=== PATIENT | female | born 1980 | race Hispanic/Latino ===

== ENCOUNTER 2017-09-04 10:06 | Day surgery (SDC) | payer MEDICAID, OTHER ==
[~2017-09-04 10:06] MED LIST: ANCEF/STERILE WATER 2 GM/20 ML IV NR
[2017-09-04] MEDS ORDERED: NACL 0.9% 1000 ML 1,000 ML IV SCH (11:00)
[2017-09-04] MEDS ORDERED: PEPCID PO NR (11:00)
[2017-09-04] MEDS ORDERED: VERSED IV NR (11:00)
[2017-09-04] MEDS ORDERED: PERCOCET 5/325 PO PRN (11:23)
[2017-09-04] MEDS ORDERED: ZOFRAN IV PRN (11:23)
[2017-09-04] MEDS ORDERED: SUBLIMAZE IV PRN (11:23)
--- NOTE | 2017-09-04 11:23 | Anesthesia Day of Surgery ---
Anesthesia Day of Surgery - Day of Surgery Patient Examined: Yes Patient is NPO: Yes Beta Blockers: No
--- NOTE | 2017-09-04 11:23 | Anesthesia Consultation ---
Anesthesia Consult and Med Hx Date of service: 09/04/17 - Airway Anesthetic Teeth Evaluation: Good, Crowns (top front, molar at top) ROM Head & Neck: Adequate Mental/Hyoid Distance: Adequate Mallampati Class: Class II Intubation Access Assessment: Probably Good - Pulmonary Exam CTA: Yes - Cardiac Exam Cardiac Exam: RRR - Pre-Operative Health Status ASA Pre-Surgery Classification: ASA2 Proposed Anesthetic Plan: General - Pulmonary Hx Smoking: Yes (OCC USES BLACK & MILDS) Hx Asthma: No Hx Sleep Apnea: No (DODIE PRE SCREEN LOW RISK.) - Cardiovascular System Hx Hypertension: No Hx Heart Attack/AMI: No - Central Nervous System Hx Seizures: No CVA: No Hx Psychiatric Problems: Yes - Gastrointestinal Hx Gastroesophageal Reflux Disease: Yes - Endocrine Hx Renal Disease: No Hx Cirrhosis: No Hx Hypothyroidism: No - Other Systems Hx Alcohol Use: Yes (2-3 DRINKS PER DAY) Hx Cancer: No Hx Obesity: Yes (BMI 35)
[2017-09-04] MEDS ORDERED: NACL BACTERIOSTATIC INFILTRATI ONE (11:32)
[2017-09-04] MEDS ORDERED: DIPRIVAN 10 MG/ML IV ONE (12:32)
[2017-09-04] MEDS ORDERED: XYLOCAINE MPF 2% ONE (12:34)
[2017-09-04] MEDS ORDERED: WATER FOR IRRIG STERILE IR ONE (13:00)
--- NOTE | 2017-09-04 13:23 | Short Stay Summary ---
Short Stay Documentation Date of service: 09/04/17 - History H&P: obtained from office - Allergies and Medications Current Medications: Allergies nitrofurantoin [From Macrobid] Allergy (Verified 09/02/17 16:09) CHEST PAIN codeine Adverse Reaction (Intermediate, Verified 09/04/17 11:54) Nausea CAUSES NAUSEA AND VOMITING,HEADACHE ALMOND Adverse Reaction (Uncoded 05/17/16 11:23) Itching Home Medications Medication Instructions Recorded Confirmed Last Taken Type Omeprazole [Omeprazole] 1 tab PO DAILY 06/05/16 09/04/17 09/02/17 History Motrin 800 MG tab 800 mg PO PRN PRN 09/02/17 09/02/17 Unknown History Active Medications Cefazolin Sodium (Ancef/Sterile Water 2 Gm/20 Ml) 2 gm IV PREOP NR Stop: 09/04/17 23:59 Famotidine (Pepcid) 20 mg PO PREOP NR Stop: 09/04/17 23:59 Last Admin: 09/04/17 11:30 Dose: 20 mg Fentanyl (Sublimaze) 50 mcg IV Q5MIN PRN PRN Reason: Pain , Severe (7-10) Sodium Chloride (Nacl 0.9% 1000 Ml) 1,000 mls @ 75 mls/hr IV DIRECT WNADA Last Admin: 09/04/17 11:40 Dose: 75 mls/hr Midazolam HCl (Versed) 2 mg IV PREOP NR Stop: 09/04/17 23:59 Last Admin: 09/04/17 11:45 Dose: 2 mg Ondansetron HCl (Zofran) 4 mg IV ONCE PRN PRN Reason: Nausea And Vomiting Oxycodone/Acetaminophen (Percocet 5/325) 1 tab PO ONCE PRN PRN Reason: Pain, Moderate (4-6) - Brief post op/procedure progress note Date of procedure: 09/04/17 Pre-op diagnosis: left flank pain Post-op diagnosis: same Procedure: cysto,rpg, left ureteroscopy, stent with external string Anesthesia: MARYA Surgeon: MYESHA FRIED Estimated blood loss: none Pathology: none Condition: stable - Hospital course Hospital course: macrobid, ultram, dilaudid on chart - Disposition Condition at discharge: Stable Disposition: DC-01 TO HOME OR SELFCARE Short Stay Discharge Plan Follow up with: SANJEEV PRADO NP [Primary Care Provider] - 7 Days
[2017-09-04] MEDS ORDERED: ZOFRAN ONE (13:26)
[2017-09-04] MEDS ORDERED: DILAUDID ONE (13:26)
--- NOTE | 2017-09-04 13:47 | Operative Report ---
PREOPERATIVE DIAGNOSIS: Left flank pain, history of stones. POSTOPERATIVE DIAGNOSES: Left flank pain, history of stones. PROCEDURE: Cystoscopy, bilateral retrograde pyelograms, left ureteroscopy, double-J stent (6-Hungarian 24 cm with an external string). SURGEON: Jamari Baxter MD ANESTHESIA: General. ESTIMATED BLOOD LOSS: Minimal. FLUIDS: Crystalloid. COMPLICATIONS: No complications. INDICATIONS: This patient is a 37-year-old female known to our office, presented recently with left flank pain, persisted over several weeks, question of UTI in the past. She presents now for surgical intervention. The patient states she has gone to the Emergency Room several times. CT of abdomen and pelvis done at [facility], unremarkable. Also, of note, she had seen orthopedist, it is unclear if it is for back pain, knee pain or joint pain. DESCRIPTION OF PROCEDURE: The patient was taken to the operative suite, placed in a supine position. After adequate general anesthesia, placed in a dorsal lithotomy position, prepped and draped in a sterile fashion. Pancystourethroscopy was performed with 22-Hungarian Storz cystoscope. No bladder pathology. No tumors or stones. Both ureteral orifices in normal position. Bilateral retrograde pyelograms were obtained with an 8-Hungarian [place] catheter and 8 mL of contrast. No filling defects or obstruction bilaterally; however, due to her persistent pain on the left elected to do ureteroscopy. Two 0.035 Glidewires were placed. Ureteroscopy all the way to the renal pelvis was performed. No obvious stone could be appreciated. A 6-Hungarian 24 cm double-J stent with an external string was indwelling. It is possible she may have passed the stone recently. If her pain persist she may require evaluation with her with orthopedics. JOB# [id number] C/NTS
--- NOTE | 2017-09-04 13:49 | Post Anesthesia Evaluation ---
- Post Anesthesia Evaluation Patient Participated: Yes Airway Patent: Yes Stable Respiratory Function: Yes Nausea/Vomiting: No Temp > 96.8F: Yes Pain Manageable: Yes Adequeate Hydration: Yes Anesthesia Complications: No Block Receding Appropriately: Not Applicable Patient on Ventilator: No
[2017-09-04] MEDS: DILAUDID IV PRN ×2 (13:53→14:03)
[2017-09-04] MEDS ORDERED: ULTRAM PO ONE (15:00)
[2017-09-04] MEDS ORDERED: TORADOL IV ONE (15:00)
[2017-09-04 15:10] VITALS: BP 106/58
--- NOTE | 2017-09-05 08:44 | Fluoroscopy Report ---
FLUOROSCOPY RETROGRADE UROGRAPHY History: Left ureteral stone. Findings: Fluoroscopy was provided by radiology during retrograde urography by the urologist. 8 fluoroscopic images were captured. Retrograde pyelograms demonstrate no evidence for ureteral filling defect or abnormal dilatation. Left ureteroscopy was performed per the operative notes. A left ureteral stent was placed which is in good position on the final image. Please correlate with the procedural report as needed. Impression: Left ureteral stent placement.
== END 2017-09-04 15:33 | disposition home or self-care (01) ==
LOC: OR 10:06
PROVIDERS: ATTEND Urology
DX: R10.12 Left upper quadrant pain (principal); K21.9 Gastro-esophageal reflux disease without esophagitis; E66.9 Obesity, unspecified; F17.200 Nicotine dependence, unspecified, uncomplicated; Z68.35 Body mass index [BMI] 35.0-35.9, adult; Z88.5 Allergy status to narcotic agent; Z91.018 Allergy to other foods
CPT/HCPCS: 52351; 74420; 81025; A4217; C1758; C1769; C2617; J0690; J1170; J1885; J2250; J2405; J2704; J7030; Q9967

== ENCOUNTER 2018-04-14 13:47 | Outpatient (CLI) | payer OTHER ==
--- NOTE | 2018-04-14 16:13 | Ultrasound Report ---
RIGHT BREAST ULTRASOUND: 04/14/18 13:47:00 CLINICAL: Right breast pain, enlargement and edema. She has had several courses of antibiotics. COMPARISON: 03/13/18 MRI FINDINGS: Ultrasound of the right breast(including all four quadrants and the retroareolar area) was performed and demonstrated moderate duct ectasia with relatively echogenic material within multiple ducts. These prominent ducts are identified at 6 o'clock 4 cm from the nipple, 6 o'clock 7 cm from the nipple, 7 o'clock 7 cm from the nipple, 8 o'clock 7 cm from the nipple and 9:30 o'clock 7 cm from the nipple. An irregular hypoechoic mass is identified at 7 o'clock 7 cm from the nipple. It measures 6 x 3 x 6 mm. Color Doppler demonstrates moderate increased blood flow in periductal tissue. This is most prominent at 6 o'clock. IMPRESSION: 1. Moderate duct ectasia with possible intraductal masses in the upper outer quadrant, lower outer quadrant and at 6 o'clock. 2. A solid 6 mm mass at 7 o'clock 7cm from the nipple. 3. Recommend ultrasound-guided needle biopsy at 2 sites (ducts at 9:30 o'clock 7 cm from the nipple and the mass at 7 o'clock 7 cm from the nipple). BI-RADS 4--Suspicious
== END 2018-04-14 13:48 | disposition home or self-care (01) ==
LOC: SPVWC 13:47
PROVIDERS: ATTEND Surgery
DX: N60.41 Mammary duct ectasia of right breast (principal); K21.9 Gastro-esophageal reflux disease without esophagitis; E66.9 Obesity, unspecified; Z87.891 Personal history of nicotine dependence; Z90.49 Acquired absence of other specified parts of digestive tract

== ENCOUNTER 2018-04-21 12:48 | Outpatient (CLI) | payer OTHER ==
--- NOTE | 2018-04-21 15:02 | Mammography Report ---
RIGHT DIGITAL DIAGNOSTIC MAMMOGRAM: 04/21/18 12:48:00 CLINICAL: For clip placement immediately status post ultrasound guided vacuum assisted biopsy at 6 o'clock and status post ultrasound guided needle core biopsy at 7 o'clock. COMPARISON:03/13/18 MRI FINDINGS: Biopsy clips are identified at 6 o'clock approximately 5.5 and 6.5 cm from the nipple. The vacuum assisted biopsy is slightly more anterior and superior. IMPRESSION: Concordant clip placement status post ultrasound guided biopsy at 2 sites. BI-RADS CATEGORY: 4--Suspicious Pathology pending.
--- NOTE | 2018-04-21 16:34 | Ultrasound Report ---
VACUUM ASSISTED ULTRASOUND BIOPSY WITH CLIP PLACEMENT RIGHT BREAST AND ULTRASOUND GUIDED NEEDLE CORE BIOPSY OF A SECOND SITE RIGHT BREAST: 04/21/18 12:48:00 CLINICAL: Right breast mass and suspicious intraductal lesions. COMPARISON :04/14/18 breast ultrasound. FINDINGS: The procedure was explained to the patient and informed consent was obtained. Ultrasound demonstrated the previously described solid mass at 7 o'clock 7 cm from the nipple. After additional scanning, decided to sample abnormal ducts at 6 o'clock rather than a 9:30 o'clock. The skin was prepped with Betadine and anesthetized with 1% lidocaine. Ultrasound guided needle core biopsy of the mass at 7 o'clock was performed through a small dermatotomy using 2% lidocaine with epinephrine for deep anesthesia and a 14-gauge Achieve biopsy device. 3 samples were obtained and placed in formalin. A localizer clip was deployed within the mass. The skin was prepped with Betadine and anesthetized with 1% lidocaine at 6 o'clock. Vacuum-assisted needle core biopsy was performed through a small dermatotomy using ultrasound guidance, 2% lidocaine with epinephrine for deep anesthesia and a 10 gauge Mammotome Elite biopsy probe. Multiple samples of abnormal ducts were obtained and placed in formalin. A localizer clip was deployed at the site. Hemostasis was obtained at both sites with minimal pressure and sterile dressings were applied. The patient tolerated the procedure well and there were no apparent complications. A post procedure mammogram demonstrated 2 biopsy clips at 6 o'clock approximately 1 cm apart. She was discharged in good condition and was given instructions for wound care and followup. IMPRESSION: Uncomplicated vacuum-assisted ultrasound core biopsy of a right breast mass at 7 o'clock and uncomplicated needle core biopsy of suspicious abnormal ducts at 6 o'clock. URIEL
== END 2018-04-21 12:49 | disposition home or self-care (01) ==
LOC: SPVWC 12:48
PROVIDERS: ATTEND Surgery
DX: N63.10 Unspecified lump in the right breast, unspecified quadrant (principal); K21.9 Gastro-esophageal reflux disease without esophagitis; F41.9 Anxiety disorder, unspecified; F17.200 Nicotine dependence, unspecified, uncomplicated; E66.9 Obesity, unspecified; Z68.35 Body mass index [BMI] 35.0-35.9, adult; Z79.899 Other long term (current) drug therapy; Z88.5 Allergy status to narcotic agent; Z88.8 Allergy status to other drugs, medicaments and biological substances; Z91.018 Allergy to other foods; Z72.89 Other problems related to lifestyle; Z98.890 Other specified postprocedural states
CPT/HCPCS: 19083; 19084; 77065; 88305; 88341; 88342; A4648

== ENCOUNTER 2018-07-29 12:07 | Observation (INO) | payer OTHER ==
[2018-07-28 11:23] LABS: BUN/Creatinine Ratio 13; Blood Urea Nitrogen 9 mg/dL (7-17); Calcium 8.9 mg/dL (8.4-10.2); Hemolysis Index 8
[2018-07-28 11:57] LABS: Basophils % (Auto) 0.7 % (0.0-1.8); Eosinophils # (Auto) 0.1 K/mm3 (0.0-0.4); Eosinophils % (Auto) 1.8 % (0.0-4.3); Hematocrit 38.7 % (30.3-42.9); Hemoglobin 12.9 gm/dl (10.1-14.3); Lymphocytes # (Auto) 1.5 K/mm3 (1.2-5.4); Mean Corpuscular HGB Conc 33 % (30-34); Mean Corpuscular Volume 94 fl (79-97); Monocytes # (Auto) 0.5 K/mm3 (0.0-0.8); Monocytes % (Auto) 7.8 % (0.0-7.3); Platelet Count 284 K/mm3 (140-440); Red Blood Count 4.14 M/mm3 (3.65-5.03); Red Cell Distribution Width 13.8 % (13.2-15.2)
[2018-07-29] MEDS ORDERED: SUBLIMAZE ONE ×3 (12:20→16:00)
[2018-07-29] MEDS ORDERED: XYLOCAINE MPF 2% ONE (12:20)
[2018-07-29] MEDS ORDERED: ZEMURON IV ONE (12:20)
[2018-07-29] MEDS ORDERED: BLOXIVERZ ONE (12:20)
[2018-07-29] MEDS ORDERED: ROBINUL ONE (12:20)
[2018-07-29] MEDS ORDERED: DIPRIVAN 10 MG/ML IV ONE (12:21)
[2018-07-29] MEDS ORDERED: LACTATED RINGERS 1,000 ML IV SCH ×2 (12:22→19:00)
[2018-07-29] MEDS ORDERED: VERSED IV PRN (13:12)
[2018-07-29] MEDS ORDERED: ZOFRAN IV NR (13:13)
[2018-07-29] MEDS ORDERED: TRANSDERM-SCOP TD NR (13:13)
[2018-07-29] MEDS ORDERED: DILAUDID ONE ×3 (13:38→18:53)
[2018-07-29] MEDS ORDERED: PEPCID IV NR (14:09)
[2018-07-29] MEDS ORDERED: ANCEF ONE (15:55)
[2018-07-29] MEDS ORDERED: WATER FOR IRRIG STERILE IR ONE (16:01)
[2018-07-29] MEDS ORDERED: SODIUM CHLORIDE FLUSH SYRINGE 10 ML IV PRN (18:07)
[2018-07-29] MEDS ORDERED: BENADRYL PO PRN (18:07)
[2018-07-29] MEDS ORDERED: ZOFRAN IV PRN ×2 (18:07→18:09)
[2018-07-29] MEDS ORDERED: PERCOCET 5/325 PO PRN ×2 (18:07→23:59)
[2018-07-29] MEDS ORDERED: REGLAN PO PRN (18:07)
[2018-07-29] MEDS ORDERED: TYLENOL PO PRN (18:07)
[2018-07-29] MEDS ORDERED: DILAUDID IV PRN (18:09)
--- NOTE | 2018-07-29 18:09 | Anesthesia Day of Surgery ---
Anesthesia Day of Surgery - Day of Surgery Patient Examined: Yes Patient H&P Reviewed: Yes Patient is NPO: Yes
--- NOTE | 2018-07-29 18:09 | Anesthesia Consultation ---
Anesthesia Consult and Med Hx Date of service: 07/29/18 - Airway Anesthetic Teeth Evaluation: Poor ROM Head & Neck: Adequate Mental/Hyoid Distance: Adequate Mallampati Class: Class III Intubation Access Assessment: Possibly Difficult - Pulmonary Exam CTA: Yes - Cardiac Exam Cardiac Exam: RRR - Pre-Operative Health Status ASA Pre-Surgery Classification: ASA3 Proposed Anesthetic Plan: General - Pulmonary Hx Smoking: Yes (OCC USES BLACK & MILDS) Hx Asthma: No Hx Sleep Apnea: No (DODIE PRE SCREEN NEGATIVE.) - Cardiovascular System Hx Hypertension: No Hx Heart Attack/AMI: No - Central Nervous System Hx Seizures: No CVA: No Hx Psychiatric Problems: Yes - Gastrointestinal Hx Gastroesophageal Reflux Disease: Yes - Endocrine Hx Renal Disease: No Hx Cirrhosis: No Hx Hypothyroidism: No - Other Systems Hx Alcohol Use: Yes (2-3 DRINKS PER DAY) Hx Obesity: Yes (BMI 35)
--- NOTE | 2018-07-29 18:20 | Operative Report ---
Operative Report Operative Report: Date of Service: July 29, 2018 Preoperative diagnosis: Right breast cancer sarcoma Postoperative diagnosis: Same Procedure: Right total mastectomy Surgeon: Eleanor Pfeiffer M.D. Anesthesia: Gen. Findings: Known right breast sarcoma and highly vascular, fibrotic tissue noted on pectoralis muscle Complications: None Drains: per plastic surgery Estimated blood loss: 200 cc Disposition: OR Indications for operative procedure: This is a 38-year-old lady with newly diagnosed right breast sarcoma. Recommendations were to proceed with right total mastectomy. Plastic surgery available for closure if skin was not able to be closed. She wished to proceed with the above procedure and understood the possibility of skin flap if skin was not able to be approximated. Procedure in detail: Anesthesia placed right pectoral muscle block prior to going to the operating room. The patient was taken to the operating room and was placed supine. Gen. anesthesia was administered. Right chest and axilla was prepped and draped in the normal sterile operative fashion. Timeout was performed. Typical mastectomy incision marking was made to include wide area of skin. Attention was taken towards the right breast. First began raising of the superior flap to the level of the clavicle superiorly and posteriorly to the pectoralis muscle. Followed by raising of the medial flap to the level of the sternum and posteriorly to the pectoralis muscle. Followed by raising of the lateral flap to the level of the latissimus dorsi muscle and taken down posteriorly. Followed by with raising of the inferior flap to the level of the inframammary fold taken posterior to the pectoralis muscle. The mastectomy/breast was removed from the pectoralis muscle without incident. Tumor was not encountered and large area of skin was resected with tumor. Breast was highly vascular and some fibrotic tissue was noted adherent to pectoralis muscle that was resected. The specimen was appropriately marked and sent to pathology. Hemostasis was obtained. The chest wall was irrigated and suctioned. Plastic surgery then proceeded with skin closure with skin advancement and primary closure. She tolerated surgery very well.
--- NOTE | 2018-07-29 18:21 | Short Stay Summary ---
Short Stay Documentation Date of service: 07/29/18 - History H&P: obtained from office - Allergies and Medications Current Medications: Allergies nitrofurantoin [From Macrobid] Allergy (Verified 05/29/18 15:16) CHEST PAIN codeine Adverse Reaction (Intermediate, Verified 05/29/18 15:16) Nausea CAUSES NAUSEA AND VOMITING,HEADACHE ALMOND Adverse Reaction (Uncoded 05/17/16 11:23) Itching CONTRAST DYE Adverse Reaction (Uncoded 07/29/18 13:25) Hives Home Medications Medication Instructions Recorded Confirmed Last Taken Type Omeprazole 1 tab PO DAILY 06/05/16 07/29/18 07/29/18 07:00 History Ibuprofen 800 mg PO Q8HR PRN #30 tablet 06/01/18 07/29/18 2 Weeks Ago Rx ~07/15/18 Ondansetron (Nf) [Zofran TAB] 8 mg PO Q8HR PRN #10 tablet 07/29/18 Unknown Rx oxyCODONE /ACETAMINOPHEN [Percocet 1 tab PO Q4HR PRN #30 tab 07/29/18 Unknown Rx 5/325] Active Medications Acetaminophen (Tylenol) 650 mg PO Q6H PRN PRN Reason: Pain MILD(1-3)/Fever >100.5/BROWNING Cefazolin Sodium (Ancef/Sterile Water 2 Gm/20 Ml) 2 gm IV PREOP NR Stop: 07/29/18 23:00 Diphenhydramine HCl (Benadryl) 25 mg PO Q8H PRN PRN Reason: Itching Docusate Sodium (Colace) 100 mg PO BID WANDA Famotidine (Pepcid) 20 mg IV PREOP NR Stop: 07/29/18 23:59 Last Admin: 07/29/18 13:45 Dose: 20 mg Documented by: Hydromorphone HCl (Dilaudid) 0.5 mg IV Q10MIN PRN PRN Reason: Pain , Severe (7-10) Lactated Ringer's (Lactated Ringers) 1,000 mls @ 100 mls/hr IV DIRECT WANDA Last Admin: 07/29/18 13:00 Dose: 100 mls/hr Documented by: Lactated Ringer's (Lactated Ringers) 1,000 mls @ 125 mls/hr IV DIRECT WANDA Metoclopramide HCl (Reglan) 10 mg PO Q6H PRN PRN Reason: Nausea And Vomiting Midazolam HCl (Versed) 2 mg IV PREOP PRN PRN Reason: Anxiety Last Admin: 07/29/18 13:40 Dose: 2 mg Documented by: Morphine Sulfate (Morphine) 2 mg IV Q4H PRN PRN Reason: Pain, Moderate (4-6) Ondansetron HCl (Zofran) 4 mg IV PREOP NR Stop: 07/30/18 13:12 Last Admin: 07/29/18 13:30 Dose: 4 mg Documented by: Ondansetron HCl (Zofran) 4 mg IV Q8H PRN PRN Reason: N/V unrelieved by Reglan Ondansetron HCl (Zofran) 4 mg IV ONCE PRN PRN Reason: Nausea And Vomiting Oxycodone/Acetaminophen (Percocet 5/325) 1 tab PO Q6H PRN PRN Reason: Pain, Moderate (4-6) Scopolamine (Transderm-Scop) 1 each TD PREOP NR Stop: 07/29/18 23:59 Last Admin: 07/29/18 13:30 Dose: 1 each Documented by: Sodium Chloride (Sodium Chloride Flush Syringe 10 Ml) 10 ml IV PRN PRN PRN Reason: LINE FLUSH - Brief post op/procedure progress note Date of procedure: 07/29/18 Pre-op diagnosis: Right breast sarcoma Post-op diagnosis: same Procedure: Right total mastectomy Anesthesia: GETA Findings: Right breast sarcoma Surgeon: TREVOR PETERSON Estimated blood loss: other (200 ml) Pathology: list (mastectomy) Specimen disposition: to lab Condition: stable - Disposition Condition at discharge: Good Disposition: DC/TX-02 SHRT-TRM GEN HOSP IP Short Stay Discharge Plan Activity: other (no heavy lifting) Diet: regular Wound: keep clean and dry Follow up with: HAYLEE CABAN MD [Primary Care Provider] - 7 Days TREVOR PETERSON MD [Staff Physician] - 7 Days Prescriptions: Ondansetron (Nf) [Zofran TAB] 8 mg PO Q8HR PRN #10 tablet PRN Reason: Nausea oxyCODONE /ACETAMINOPHEN [Percocet 5/325] 1 tab PO Q4HR PRN #30 tab PRN Reason: Pain , Severe (7-10)
[2018-07-29] MEDS: MORPHINE IV PRN ×2 (19:05→22:40)
[2018-07-29] MEDS ORDERED: MORPHINE ONE (19:05)
[2018-07-29] MEDS ORDERED: VERSED IV ONE (19:21)
[2018-07-29] MEDS ORDERED: VERSED ONE (19:24)
[2018-07-30] MEDS: COLACE PO SCH ×2 (00:08→09:30)
[2018-07-30] MEDS: MORPHINE IV PRN (05:41)
--- NOTE | 2018-07-30 08:09 | Progress Note ---
Assessment and Plan This is a 38 year old lady POD# 1 right mastectomy for angiosarcoma. 1. Pain in good control. 2. Right mastectomy with PICCO in place and ELVIN drains to bulb suction. 3. OOB to hallway. 4. D/C planning for today. Subjective Date of service: 07/30/18 Principal diagnosis: Right breast sarcoma Interval history: POD#1 Right mastectomy for angiosarcoma Objective - Constitutional Vitals: Vital Signs - 12hr 07/29/18 07/29/18 07/29/18 20:30 22:40 23:10 Temperature 97.6 F Pulse Rate 60 Respiratory 15 20 18 Rate Blood Pressure 116/60 Blood Pressure [Left] O2 Sat by Pulse 100 Oximetry 07/30/18 07/30/18 07/30/18 00:00 00:10 01:10 Temperature 98.6 F Pulse Rate 74 Respiratory 16 18 20 Rate Blood Pressure Blood Pressure 101/78 [Left] O2 Sat by Pulse Oximetry 07/30/18 07/30/18 07/30/18 04:20 05:41 06:11 Temperature 98.6 F Pulse Rate 62 Respiratory 18 18 18 Rate Blood Pressure Blood Pressure 118/67 [Left] O2 Sat by Pulse Oximetry General appearance: Present: no acute distress - EENT Eyes: PERRL, EOM intact ENT: hearing intact, clear oral mucosa, dentition normal Ears: bilateral: normal - Neck Neck: supple, normal ROM - Respiratory Respiratory effort: normal Respiratory: bilateral: CTA - Breasts Breasts: other (right PICCO dressing in place to suction; ELVIN drain to bulb suction) - Cardiovascular Rhythm: regular Extremities: no ischemia, pulses intact, pulses symmetrical, No edema, normal temperature, normal color, Full ROM - Gastrointestinal General gastrointestinal: Present: soft, non-tender, non-distended Rectal Exam: deferred - Genitourinary Female genitourinary: deferred - Integumentary Integumentary: clear, warm, dry - Musculoskeletal Musculoskeletal: strength equal bilaterally - Neurologic Neurologic: CNII-XII intact, moves all extremities - Psychiatric Psychiatric: appropriate mood/affect, intact judgment & insight, memory intact, cooperative - Labs CBC & Chem 7: 07/28/18 10:30 07/28/18 10:30 Medications & Allergies - Medications Allergies/Adverse Reactions: Allergies nitrofurantoin [From Macrobid] Allergy (Verified 05/29/18 15:16) CHEST PAIN codeine Adverse Reaction (Intermediate, Verified 05/29/18 15:16) Nausea CAUSES NAUSEA AND VOMITING,HEADACHE ALMOND Adverse Reaction (Uncoded 05/17/16 11:23) Itching CONTRAST DYE Adverse Reaction (Uncoded 07/29/18 13:25) Hives Home Medications: Home Medications Medication Instructions Recorded Confirmed Last Taken Type Omeprazole 1 tab PO DAILY 06/05/16 07/29/18 07/29/18 07:00 History Ibuprofen 800 mg PO Q8HR PRN #30 tablet 06/01/18 07/29/18 2 Weeks Ago Rx ~07/15/18 Ondansetron (Nf) [Zofran TAB] 8 mg PO Q8HR PRN #10 tablet 07/29/18 Unknown Rx oxyCODONE /ACETAMINOPHEN [Percocet 1 tab PO Q4HR PRN #30 tab 07/29/18 Unknown Rx 5/325] Active Medications: Generic Name Dose Route Start Last Admin Trade Name Freq PRN Reason Stop Dose Admin Acetaminophen 650 mg 07/29/18 18:07 Tylenol PO Q6H PRN Pain MILD(1-3)/Fever >100.5/BROWNING Diphenhydramine HCl 25 mg 07/29/18 18:07 Benadryl PO Q8H PRN Itching Docusate Sodium 100 mg 07/29/18 22:00 07/30/18 00:08 Colace PO Not Given BID WANDA Hydromorphone HCl 0.5 mg 07/29/18 18:09 Dilaudid IV Q10MIN PRN Pain , Severe (7-10) Lactated Ringer's 1,000 mls @ 100 mls/hr 07/29/18 12:22 07/29/18 13:00 Lactated Ringers IV 100 mls/hr DIRECT WANDA Administration Lactated Ringer's 1,000 mls @ 125 mls/hr 07/29/18 19:00 Lactated Ringers IV DIRECT WANDA Metoclopramide HCl 10 mg 07/29/18 18:07 Reglan PO Q6H PRN Nausea And Vomiting Midazolam HCl 2 mg 07/29/18 13:12 07/29/18 13:40 Versed IV 2 mg PREOP PRN Administration Anxiety Morphine Sulfate 2 mg 07/29/18 18:09 07/30/18 05:41 Morphine IV 2 mg Q4H PRN Administration Pain, Moderate (4-6) Ondansetron HCl 4 mg 07/29/18 13:13 07/29/18 13:30 Zofran IV 07/30/18 13:12 4 mg PREOP NR Administration Ondansetron HCl 4 mg 07/29/18 18:07 07/30/18 02:05 Zofran IV 4 mg Q8H PRN Administration N/V unrelieved by Nelly Ondansetron HCl 4 mg 07/29/18 18:09 Zofran IV ONCE PRN Nausea And Vomiting Oxycodone/Acetaminophen 2 tab 07/29/18 23:59 07/30/18 00:10 Percocet 5/325 PO 2 tab Q4H PRN Administration Pain, Moderate (4-6) Sodium Chloride 10 ml 07/29/18 18:07 Sodium Chloride Flush Syringe 10 Ml IV PRN PRN LINE FLUSH
[2018-07-30] MEDS ORDERED: TORADOL PO PRN (09:00)
[2018-07-30 12:22] VITALS: BP 107/41
== END 2018-07-30 13:30 | disposition home or self-care (01) ==
LOC: OR 12:07 → OB 18:07
PROVIDERS: ADMIT Surgery; ATTEND Surgery
DX: C50.811 Malignant neoplasm of overlapping sites of right female breast (principal); C50.011 Malignant neoplasm of nipple and areola, right female breast
CPT/HCPCS: 19303; 36415; 64450; 80048; 84703; 85025; 88309; 96374; 96375; 96376; G0378; J0690; J1170; J2250; J2270; J2405; J2704; J2710; J3010; J7120

== ENCOUNTER 2018-08-05 11:01 | Observation (INO) | payer OTHER ==
[2018-08-05] MEDS ORDERED: TRANSDERM-SCOP TD ONE (11:46)
[2018-08-05] MEDS ORDERED: PEPCID IV ONE (11:46)
[2018-08-05] MEDS ORDERED: NEURONTIN ONE (11:47)
[2018-08-05] MEDS ORDERED: LACTATED RINGERS 1,000 ML IV SCH ×2 (12:00→18:00)
[2018-08-05] MEDS ORDERED: VERSED ONE ×2 (13:02→17:43)
[2018-08-05] MEDS ORDERED: DIPRIVAN 10 MG/ML IV ONE (13:02)
[2018-08-05] MEDS ORDERED: SUBLIMAZE ONE ×4 (13:02→15:24)
[2018-08-05] MEDS ORDERED: XYLOCAINE MPF 2% ONE (13:03)
--- NOTE | 2018-08-05 13:47 | Short Stay Summary ---
Short Stay Documentation Date of service: 08/05/18 - History H&P: obtained from office - Allergies and Medications Current Medications: Allergies nitrofurantoin [From Macrobid] Allergy (Verified 05/29/18 15:16) CHEST PAIN codeine Adverse Reaction (Intermediate, Verified 05/29/18 15:16) Nausea CAUSES NAUSEA AND VOMITING,HEADACHE ALMOND Adverse Reaction (Uncoded 05/17/16 11:23) Itching CONTRAST DYE Adverse Reaction (Uncoded 07/29/18 13:25) Hives Home Medications Medication Instructions Recorded Confirmed Last Taken Type Omeprazole 1 tab PO DAILY 06/05/16 08/05/18 08/05/18 07:00 History Ondansetron (Nf) [Zofran TAB] 8 mg PO Q8HR PRN #10 tablet 07/29/18 08/04/18 Unknown Rx oxyCODONE /ACETAMINOPHEN [Percocet 1 tab PO Q4HR PRN #30 tab 07/29/18 08/05/18 08/04/18 Rx 5/325] Active Medications Cefazolin Sodium (Ancef/Sterile Water 2 Gm/20 Ml) 2 gm IV PREOP NR Stop: 08/05/18 16:00 Lactated Ringer's (Lactated Ringers) 1,000 mls @ 100 mls/hr IV DIRECT WANDA Last Admin: 08/05/18 11:50 Dose: 100 mls/hr Documented by: - Brief post op/procedure progress note Date of procedure: 08/05/18 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 Post-op diagnosis: same Procedure: Right mastectomy skin margin revision Anesthesia: GETA Findings: Revision of right mastectomy skin margins of 3 cm Surgeon: TREVOR PETERSON Estimated blood loss: minimal Pathology: list (skin revision) Specimen disposition: to lab Condition: stable - Disposition Condition at discharge: Good Disposition: DC-01 TO HOME OR SELFCARE Short Stay Discharge Plan Activity: other (no heavy lifting; wear right arm sling) Diet: regular Wound: keep clean and dry (wear breast binder; wear right arm sling) Follow up with: HAYLEE CABAN MD [Primary Care Provider] - 7 Days TREVOR PETERSON MD [Staff Physician] - 7 Days Prescriptions: cephALEXin [Keflex] 500 mg PO Q12HR #14 cap
--- NOTE | 2018-08-05 13:49 | Operative Report ---
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 She recently underwent right mastecomy with final pathology of angiosarcoma of 12 cm and benign all surgical margins and closest margin of 2 mm. Recommendations was to proceed with mastectomy skin margin revision with margins of at least 2 cm but attempt of 3 cm. Patient wished to proceed with the above procedure. Procedure in detail: The patient was taken to the operating room and was placed supine. General anesthesia was administered. PICCO wound vac dressing was removed. ELVIN drain was removed. The right chest was prepped and draped in the normal sterile operative fashion. Timeout was performed. 3 cm margin markings were made around the entire mastectomy incison, placing revisions of 3 cm per margin revised superiorly, inferiorly, medially and laterally. Skin incision was made with a 15 blade knife. Subcutaneous tissues were opened with the aid of the Bovie cautery and knife. The skin margins were revised down to pectoralis muscle. Skin margin revision was marked and then sent to pathology. 19 Kiswahili ELVIN drain was placed. Hemostasis was obtained with the Bovie cautery. Chest cavity was irrigated and suctioned. The skin approximated given prior release of upper abdomen by plastic surgery at prior surgery. The subcutaneous tissue were approximated and closed using interrupted 3-0 Vicryl and skin brought together and closed using a running 4-0 Monocryl. PICCO wound vac dressing was applied. She tolerated surgery very well and was awaken from anesthesia without any complications and transported to PACU in good condition.
[2018-08-05] MEDS ORDERED: DECADRON ONE ×2 (13:53→17:44)
[2018-08-05] MEDS ORDERED: ZOFRAN ONE (13:54)
[2018-08-05] MEDS ORDERED: LACTATED RINGERS 1,000 ML ONE ×2 (14:34→18:30)
[2018-08-05] MEDS ORDERED: WATER FOR IRRIG STERILE IR ONE (14:37)
[2018-08-05] MEDS ORDERED: DILAUDID ONE (15:39)
[2018-08-05] MEDS ORDERED: ZOFRAN IV PRN ×2 (16:00→17:30)
[2018-08-05] MEDS: DILAUDID IV PRN ×2 (16:03→17:39)
[2018-08-05] MEDS ORDERED: REGLAN PO PRN (17:30)
[2018-08-05] MEDS ORDERED: BENADRYL PO PRN (17:30)
[2018-08-05] MEDS ORDERED: PERCOCET 5/325 PO PRN (17:30)
[2018-08-05] MEDS ORDERED: SODIUM CHLORIDE FLUSH SYRINGE 10 ML IV PRN (17:30)
[2018-08-05] MEDS ORDERED: TYLENOL PO PRN (17:30)
[2018-08-05] MEDS ORDERED: TORADOL PO PRN (17:33)
[2018-08-05] MEDS ORDERED: MORPHINE IV PRN (17:33)
[2018-08-05] MEDS ORDERED: XYLOCAINE 1% 20 mL ONE (17:44)
[2018-08-05] MEDS ORDERED: PERCOCET 5/325 PO ONE (17:58)
--- NOTE | 2018-08-05 18:21 | Anesthesia Consultation ---
Anesthesia Consult and Med Hx Date of service: 08/05/18 - Airway Anesthetic Teeth Evaluation: Good ROM Head & Neck: Adequate Mental/Hyoid Distance: Adequate Mallampati Class: Class I Intubation Access Assessment: Good - Pulmonary Exam CTA: Yes - Cardiac Exam Cardiac Exam: RRR - Pre-Operative Health Status ASA Pre-Surgery Classification: ASA2 Proposed Anesthetic Plan: General - Pulmonary Hx Smoking: Yes (OCC USES BLACK & MILDS) Hx Asthma: No Hx Sleep Apnea: No (DODIE PRE SCREEN NEGATIVE.) - Cardiovascular System Hx Hypertension: No Hx Heart Attack/AMI: No - Central Nervous System Hx Seizures: No CVA: No Hx Psychiatric Problems: Yes - Gastrointestinal Hx Gastroesophageal Reflux Disease: Yes - Endocrine Hx Renal Disease: No Hx Cirrhosis: No Hx Hypothyroidism: No - Other Systems Hx Alcohol Use: Yes (2-3 DRINKS PER DAY) Hx Obesity: Yes (BMI 35)
--- NOTE | 2018-08-05 18:21 | Anesthesia Day of Surgery ---
Anesthesia Day of Surgery - Day of Surgery Patient Examined: Yes Patient H&P Reviewed: Yes Patient is NPO: Yes
--- NOTE | 2018-08-05 18:22 | Post Anesthesia Evaluation ---
- Post Anesthesia Evaluation Patient Participated: Yes Airway Patent: Yes Stable Respiratory Function: Yes Nausea/Vomiting: No Temp > 96.8F: Yes Pain Manageable: Yes Adequeate Hydration: Yes Anesthesia Complications: No Block Receding Appropriately: Not Applicable (PEC block in recovery. See anesthesia record, given 2mg of IV versed)
[2018-08-05] MEDS: COLACE PO SCH (22:37)
[2018-08-05] MEDS: KEFLEX PO SCH (22:37)
[2018-08-06] MEDS: KEFLEX PO SCH (11:16)
[2018-08-06] MEDS: COLACE PO SCH (11:16)
[2018-08-06 13:05] VITALS: BP 100/55
== END 2018-08-06 14:15 | disposition home or self-care (01) ==
LOC: OR 11:01 → OB 17:30
PROVIDERS: ADMIT Surgery; ATTEND Surgery
DX: C50.111 Malignant neoplasm of central portion of right female breast (principal); C50.811 Malignant neoplasm of overlapping sites of right female breast; C79.81 Secondary malignant neoplasm of breast
CPT/HCPCS: 19303; 81025; 88309; 96374; 96375; G0378; J0690; J1100; J1170; J2250; J2270; J2405; J2704; J3010; J7120; 88307; 88341; 88342

== ENCOUNTER 2018-08-27 06:41 | Day surgery (SDC) | payer OTHER ==
[~2018-08-27 06:41] MED LIST changes: -ANCEF/STERILE WATER 2 GM/20 ML IV NR; +LACTATED RINGERS 1,000 ML IV SCH; +ceFAZolin 2 GM in NACL 0.9% 100 ML IV SCH
[2018-08-27] MEDS ORDERED: NACL BACTERIOSTATIC INFILTRATI ONE (07:07)
[2018-08-27] MEDS ORDERED: ANCEF/STERILE WATER 2 GM/20 ML IV NR (07:15)
--- NOTE | 2018-08-27 07:36 | Anesthesia Consultation ---
Anesthesia Consult and Med Hx Date of service: 08/27/18 - Airway Anesthetic Teeth Evaluation: Good, Partials ROM Head & Neck: Adequate Mental/Hyoid Distance: Adequate Mallampati Class: Class II Intubation Access Assessment: Probably Good - Pulmonary Exam CTA: Yes - Cardiac Exam Cardiac Exam: RRR - Pre-Operative Health Status ASA Pre-Surgery Classification: ASA3 Proposed Anesthetic Plan: General, MAC - Pulmonary Hx Smoking: Yes (OCC USES BLACK & MILDS) Hx Asthma: No Hx Sleep Apnea: No (DODIE PRE SCREEN NEGATIVE.) - Cardiovascular System Hx Hypertension: No Hx Heart Attack/AMI: No - Central Nervous System Hx Seizures: No CVA: No Hx Psychiatric Problems: Yes - Gastrointestinal Hx Gastroesophageal Reflux Disease: Yes - Endocrine Hx Renal Disease: No Hx Cirrhosis: No Hx Hypothyroidism: No - Other Systems Hx Alcohol Use: Yes (2-3 DRINKS PER DAY) Hx Obesity: Yes (BMI 35)
--- NOTE | 2018-08-27 07:37 | Anesthesia Day of Surgery ---
Anesthesia Day of Surgery - Day of Surgery Patient Examined: Yes Patient H&P Reviewed: Yes Patient is NPO: Yes
[2018-08-27] MEDS ORDERED: VERSED IV NR (08:00)
[2018-08-27] MEDS ORDERED: PEPCID PO NR (08:00)
[2018-08-27] MEDS ORDERED: XYLOCAINE 1% 20 mL ONE (08:29)
[2018-08-27] MEDS ORDERED: MARCAINE 0.25% INFILTRATI ONE ×3 (08:30→09:08)
[2018-08-27] MEDS ORDERED: HEPARIN 10,000 UNITS/10 ML ONE (08:30)
[2018-08-27] MEDS ORDERED: XYLOCAINE MPF 2% ONE (08:30)
[2018-08-27] MEDS ORDERED: DILAUDID ONE (08:30)
[2018-08-27] MEDS ORDERED: NACL 0.9% 100 ML ONE (08:30)
[2018-08-27] MEDS ORDERED: DIPRIVAN 10 MG/ML IV ONE (08:30)
[2018-08-27] MEDS ORDERED: XYLOCAINE 1% 20 mL INFILTRATI ONE ×2 (09:08)
[2018-08-27] MEDS ORDERED: DILAUDID IV PRN (09:08)
[2018-08-27] MEDS ORDERED: HEPARIN 10,000 UNITS/10 ML IV ONE (09:16)
[2018-08-27] MEDS ORDERED: NACL 0.9% IV ONE (09:16)
[2018-08-27] MEDS ORDERED: NACL 0.9% IR ONE (09:24)
[2018-08-27] MEDS ORDERED: TORADOL ONE (10:03)
[2018-08-27] MEDS ORDERED: ZOFRAN ONE (10:03)
[2018-08-27] MEDS ORDERED: SUBLIMAZE ONE (10:05)
--- NOTE | 2018-08-27 10:07 | Short Stay Summary ---
Short Stay Documentation Date of service: 08/27/18 - History Principal diagnosis: angiosarcoma right breast - Allergies and Medications Current Medications: Allergies hydrocodone Allergy (Verified 08/24/18 15:34) Nausea and Headache nitrofurantoin [From Macrobid] Allergy (Verified 08/24/18 15:34) CHEST PAIN codeine Adverse Reaction (Intermediate, Verified 08/24/18 15:34) Nausea CAUSES NAUSEA AND VOMITING,HEADACHE ALMOND Allergy (Uncoded 08/24/18 15:34) Itching IV Contrast Dye Allergy (Uncoded 08/24/18 15:34) Hives Home Medications Medication Instructions Recorded Confirmed Last Taken Type Omeprazole 40 mg PO DAILY 06/05/16 08/27/18 08/27/18 History Active Medications Cefazolin Sodium (Ancef/Sterile Water 2 Gm/20 Ml) 2 gm IV PREOP NR Stop: 08/27/18 23:59 Famotidine (Pepcid) 20 mg PO PREOP NR Stop: 08/27/18 15:00 Last Admin: 08/27/18 07:53 Dose: 20 mg Documented by: Hydromorphone HCl (Dilaudid) 0.5 mg IV Q10MIN PRN PRN Reason: Pain , Severe (7-10) Stop: 08/27/18 20:00 Lactated Ringer's (Lactated Ringers) 1,000 mls @ 100 mls/hr IV DIRECT WANDA Stop: 08/27/18 23:59 Last Admin: 08/27/18 07:10 Dose: 100 mls/hr Documented by: Midazolam HCl (Versed) 2 mg IV PREOP NR Stop: 08/27/18 23:59 Last Admin: 08/27/18 07:53 Dose: 2 mg Documented by: - Brief post op/procedure progress note Date of procedure: 08/27/18 Pre-op diagnosis: right breast cancer Post-op diagnosis: same Procedure: insertion of left internal jugular port a cath using ultrasound guidance, fluoroscopy Anesthesia: GETA, local Findings: good placement of port on post op CXR without PTX Surgeon: RACIEL AQUINO Estimated blood loss: minimal Pathology: none Condition: stable - Hospital course Hospital course: Pt observed in PACU and discharged once criteria met. - Disposition Condition at discharge: Good Disposition: DC-01 TO HOME OR SELFCARE Short Stay Discharge Plan Activity: no restrictions Diet: regular Wound: open to air Additional Instructions: see printed discharge instructions Follow up with: HAYLEE CABAN MD [Primary Care Provider] - 7 Days RACIEL AQUINO DO [Staff Physician] - 14 Days Prescriptions: Ibuprofen [Motrin 800 MG tab] 800 mg PO Q8HR PRN #30 tablet PRN Reason: Pain , Severe (7-10)
--- NOTE | 2018-08-27 10:11 | Fluoroscopy Report ---
AP CHEST: HISTORY: Breast cancer, Drcrxn-j-Fjiy placement A left IJ Fnnoap-c-Qfdc has been inserted which terminates near the cavoatrial junction. No pneumothorax. AP view of the chest demonstrates a normal mediastinal and cardiac contour with clear lungs and normal bony and soft tissue structures. IMPRESSION: Unremarkable AP chest. Left Lubfgw-c-Xjmw placement. No pneumothorax.
[2018-08-27] MEDS ORDERED: BENADRYL ONE (10:21)
[2018-08-27] MEDS ORDERED: BENADRYL IV ONE (10:30)
[2018-08-27] MEDS ORDERED: PERCOCET 5/325 ONE (10:58)
[2018-08-27] MEDS ORDERED: PERCOCET 5/325 PO ONE (10:58)
[2018-08-27 11:26] VITALS: BP 102/64
--- NOTE | 2018-08-27 12:53 | Post Anesthesia Evaluation ---
- Post Anesthesia Evaluation Patient Participated: Yes Airway Patent: Yes Stable Respiratory Function: Yes Nausea/Vomiting: No Temp > 96.8F: Yes Pain Manageable: Yes Adequeate Hydration: Yes Anesthesia Complications: No
--- NOTE | 2018-08-31 12:40 | Operative Report ---
Operative Report Operative Report: Date of procedure: 08/27/18 Pre-op diagnosis: right breast cancer Post-op diagnosis: same Procedure: insertion of left internal jugular port a cath using ultrasound guidance, fluoroscopy Anesthesia: GETA, local Findings: good placement of port on post op CXR without PTX Surgeon: RACIEL AQUINO Estimated blood loss: minimal Pathology: none Condition: stable Procedure in detail: The patient was identified in the preoperative area, taken back to operating room, placed on operating table in supine position. After anesthesia was induced both arms were tucked and upper chest and neck were prepped and draped in usual sterile fashion. A timeout was performed. The was placed in Trendelenburg position. Local anesthetic was infiltrated into the skin at the intended puncture site. The LEFT subclavian vein was visualized on ultrasound and was accessed on the first stick. There was return of dark, nonpulsatile blood. The wire was threaded but met resistance. The wire and needle were removed. A second attempt was made and the vein was accessed on the first stick. There was return of nonpulsatile, dark blood. Using fluoroscopy the wire was threaded and was meeting resistance and could not be advanced into the right atrium. A glidewire was inserted and also could not be threaded without resistance. The wire and needle were removed and pressure held at the site to obtain hemostasis. The LEFT internal jugular vein was identified on ultrasound and was accessed on the first stick. There was return of dark red, nonpulsatile blood. A glidewire was threaded under fluoroscopy without resistance and positioning confirmed. The needle was then removed. Using a 15 blade, an incision was made in the LEFT upper chest and dissection carried down through the skin and subcutaneous tissue using Bovie electrocautery. Hemostasis was achieved along the way. A pocket for the port was then created bluntly and with electrocautery. The catheter was flushed and tunneled from the pocket to the wire. A breakaway catheter/dilator sheath then inserted over the wire under fluoroscopy, and the wire and dilator removed. The catheter was then inserted through the breakaway catheter which was then removed. The catheter sat flush under the skin. Using continuous fluoroscopy, the catheter was pulled back until the tip was visualized in the right atrium. The catheter was then cut to size and the port attached in the usual fashion. The port was then sutured into place to the pre-pectoral fascia using 2-0 Vicryl interrupted sutures. The wound was irrigated and hemostasis ensured. The port was tested with heparinized saline and there was return of blood and it flushed easily. The port was then instilled with 3000 units of heparin. The deep dermal layer was then closed with interrupted 3-0 Vicryl stitches. The skin incisions were closed with 4-0 Monocryl subcuticular stitches and skin glue. Intraoperative chest x-ray did show good positioning of the port, without evidence of pneumothorax. At the end of the case, all sponge, instrument, sharp counts were correct 2. The patient was awoken from anesthesia and taken to PACU in stable condition.
== END 2018-08-27 06:42 | disposition home or self-care (01) ==
LOC: OR 06:41
PROVIDERS: ATTEND Surgery
DX: C50.911 Malignant neoplasm of unspecified site of right female breast (principal); E78.00 Pure hypercholesterolemia, unspecified; K21.9 Gastro-esophageal reflux disease without esophagitis; F41.9 Anxiety disorder, unspecified; F17.210 Nicotine dependence, cigarettes, uncomplicated; E66.9 Obesity, unspecified; Z68.37 Body mass index [BMI] 37.0-37.9, adult; Z80.3 Family history of malignant neoplasm of breast; Z80.0 Family history of malignant neoplasm of digestive organs; Z88.5 Allergy status to narcotic agent; Z91.041 Radiographic dye allergy status; Z79.899 Other long term (current) drug therapy; Z98.890 Other specified postprocedural states; Z90.11 Acquired absence of right breast and nipple; Z87.442 Personal history of urinary calculi; Z72.89 Other problems related to lifestyle; Z88.8 Allergy status to other drugs, medicaments and biological substances
CPT/HCPCS: 36561; 77001; 81025; C1769; C1788; J0690; J1170; J1200; J1644; J1885; J2250; J2405; J2704; J3010; J7120

== ENCOUNTER 2019-02-22 08:21 | Outpatient (CLI) | payer OTHER ==
--- NOTE | 2019-02-22 13:41 | Mammography Report ---
DIGITAL SCREENING MAMMOGRAM WITH CAD, 02/22/2019 INDICATION: Routine screening mammography. TECHNIQUE: Digital left 2D mammography was obtained in the craniocaudal and mediolateral oblique pro jections. This examination was interpreted with the benefit of Computer-Aided Detection analysis. COMPARISON: 01/20/2018 FINDINGS: Breast Density: There are scattered areas of fibroglandular density. There is no evidence of dominant mass, suspicious calcifications or architectural distortion in the l eft breast. No interval change from prior exam. IMPRESSION: No evidence of malignancy within the left breast. BI-RADS Category 1: Negative. No mammographic evidence of malignancy. Recommend routine screening m ammography in one year. A "normal" or negative report should not discourage follow up or biopsy of a clinically significant f inding. A written summary of these findings will be mailed to the patient. The patient will be entered into a mammography reporting system which will generate a reminder letter for the patient's next appointmen t at the appropriate interval. The [employer] recommends yearly mammograms starting at age 40 and continuing as l uzma as a woman is in good health. Breast MRI is recommended for women with an approximate 20-25% or greater lifetime risk of breast cancer, including women with a strong family history of breast or ova debo cancer or who have been treated for Hodgkin's disease. Signer Name: Nikki Lion MD Signed: 02/22/2019 1:37 PM Workstation Name: [id number]
== END 2019-02-22 08:22 | disposition home or self-care (01) ==
LOC: SPVWC 08:21
PROVIDERS: ATTEND Surgery
DX: Z12.31 Encounter for screening mammogram for malignant neoplasm of breast (principal); E78.00 Pure hypercholesterolemia, unspecified; K21.9 Gastro-esophageal reflux disease without esophagitis; E66.9 Obesity, unspecified; Z90.89 Acquired absence of other organs

== ENCOUNTER 2019-10-20 19:11 | Outpatient (CLI) | payer OTHER ==
[2019-10-20] MEDS ORDERED: LACTATED RINGERS 500 ML IV ONE (20:30)
[2019-10-20] MEDS ORDERED: ACETAMINOPHEN 500 MG TAB PO ONE (20:45)
[2019-10-20 20:51] LABS: Bacteria,Urine 2+ /HPF (Negative); Bilirubin,Urine NEG (Negative); Blood,Urine NEG (Negative); Color,Urine Yellow (Yellow); Mucus,Urine 1+ /HPF; Urobilinogen,Urine < 2.0 mg/dL (<2.0)
[2019-10-20 20:59] VITALS: BP 111/62
[2019-10-20 21:44] LABS: Hematocrit 30.8 % (30.3-42.9); Hemoglobin 10.6 gm/dl (10.1-14.3); Mean Corpuscular HGB Conc 35 % (30-34); Mean Corpuscular Volume 89 fl (79-97); Platelet Count 316 K/mm3 (140-440); Red Blood Count 3.45 M/mm3 (3.65-5.03); Red Cell Distribution Width 15.2 % (13.2-15.2)
[2019-10-20 22:08] LABS: Alanine Aminotransferase 32 units/L (7-56); Uric Acid 4.5 mg/dL (3.5-7.6)
--- NOTE | 2019-10-20 22:50 | Event Note ---
Date: 10/20/19 Pt advised to come in due to c/o to oncall service [facility] of chest pain and headache. In triage pt does not have headache at this time and states she took a TOMS and her chest discomfort improved. She denies having any sob, fever, cough, chills or exposure to Covid19 person or person with Covid symptoms. Pt was examined and found to be 2cm dilated. She does have h/o delivery at 34 wks. Pt diagnosed with poly today and is not having pain with current contractions that have spaced with iv hydration. Plan at this time is to give pepcid IV and then if cx unchanged d/c home with f/u in office in one week at scheduled apt.
[2019-10-20] MEDS ORDERED: FAMOTIDINE 20 MG/2 ML INJ IV SCH (23:30)
== END 2019-10-21 01:20 | disposition home or self-care (01) ==
LOC: TRG 19:11
PROVIDERS: ATTEND Obstetrics & Gynecology
DX: O62.9 Abnormality of forces of labor, unspecified (principal); O09.523 Supervision of elderly multigravida, third trimester; Z87.891 Personal history of nicotine dependence; Z3A.34 34 weeks gestation of pregnancy
CPT/HCPCS: 36415; 59025; 81001; 82565; 83615; 84450; 84460; 84550; 85027; 87086; 93005; 93010; 96365; 96366; J7120; 96360; 96374

== ENCOUNTER 2019-11-09 03:27 | Outpatient (CLI) | payer OTHER ==
[2019-11-09 03:45] VITALS: BP 135/64
== END 2019-11-09 04:45 | disposition home or self-care (01) ==
LOC: TRG 03:27 → APU 03:30 → TRG 04:45
PROVIDERS: ATTEND Obstetrics & Gynecology
DX: O47.1 False labor at or after 37 completed weeks of gestation (principal); Z3A.37 37 weeks gestation of pregnancy
CPT/HCPCS: 59025

== ENCOUNTER 2019-11-21 20:24 | Inpatient (IN) | payer OTHER ==
[2019-11-21 21:29] LABS: Hematocrit 30.2 % (30.3-42.9); Hemoglobin 10.8 gm/dl (10.1-14.3); Mean Corpuscular HGB Conc 36 % (30-34); Mean Corpuscular Volume 90 fl (79-97); Platelet Count 275 K/mm3 (140-440); Red Blood Count 3.36 M/mm3 (3.65-5.03); Red Cell Distribution Width 16.1 % (13.2-15.2)
[2019-11-21] MEDS ORDERED: LIDOCAINE (2%) 20 MG/1 ML VIAL 20 ML MDV INFILTRATI ONE (22:37)
[2019-11-21] MEDS ORDERED: ACETAMINOPHEN 325 MG TAB PO PRN (22:37)
[2019-11-21] MEDS ORDERED: TERBUTALINE 1 MG/1 ML INJ IVP PRN (22:37)
[2019-11-21] MEDS ORDERED: TERBUTALINE 1 MG/1 ML INJ SUB-Q PRN (22:37)
[2019-11-21] MEDS ORDERED: AMPICILLIN/NS 2 GM/100 ML 2 GM/100 ML BAG IV ONE (22:37)
[2019-11-21] MEDS ORDERED: MINERAL OIL 30 ML ORAL LIQD PO PRN (22:37)
[2019-11-21] MEDS ORDERED: OXYTOCIN 20 UNIT/1000ML DRIP 20 UNITS/1,000 ML BAG IV SCH (23:00)
[2019-11-21] MEDS: LACTATED RINGERS 1,000 ML IV SCH (23:39)
--- NOTE | 2019-11-22 00:42 | Ultrasound Report ---
Limited obstetrical ultrasound. HISTORY: Evaluate QUYNH and presentation. FINDINGS: A single viable intrauterine in the cephalic position has heart tones of 12 0 bpm. Amniotic fluid index is 18. Largest quadrant is quadrant 3 (7.5 cm). IMPRESSION: 1. Cephalic presentation. 2. Amniotic fluid index 18. Signer Name: Jaswant Griffin MD Signed: 11/22/2019 12:38 AM Workstation Name: [id number]
[2019-11-22] MEDS ORDERED: DINOPROSTONE 10 MG VAG SUPP VG ONE (00:48)
[2019-11-22 01:07] LABS: Hematocrit 31.7 % (30.3-42.9); Hemoglobin 10.8 gm/dl (10.1-14.3); Mean Corpuscular HGB Conc 34 % (30-34); Mean Corpuscular Volume 91 fl (79-97); Platelet Count 253 K/mm3 (140-440)
[2019-11-22] MEDS ORDERED: AMPICILLIN/NS 1 GM/50 ML 1 GM/50 ML BAG IV SCH (02:59)
--- NOTE | 2019-11-22 06:11 | History and Physical Report ---
History of Present Illness Date of examination: 11/21/19 (pt presents for IOL; as per [facility] recommendation @ 39 w) Date of admission: 11/21/19 20:24 Chief complaint: "I'm here for my induction." History of present illness: EDC Confirmation: 11/28/2019 Gestational Age: 6 2/7 weeks Past History : 8 Term Births: 3 Premature Births: 1 Living Children: 4 Para: 4 Mult. Births: 0 Prev : 0 Prev. attempt? 0 Aborta: 3 Elect. Ab: 3 Spont. Ab: 0 Ectopics: 0 # 1 Delivery date: 1998 Weeks Gestation: 20 weeks Delivery type: EAB Comments: "2 day process" laminaria # 2 Delivery date: 2001 Weeks Gestation: 6 weeks Delivery type: EAB Comments: D&C with repeat 1 week later # 3 Delivery date: 10/13/2002 Weeks Gestation: 40 Delivery type: Anesthesia type: epidural Delivery location: [facility] Infant Sex: Female weight: 7#8 Comments: IOL no complications # 4 Delivery date: 2004 Weeks Gestation: 4- weeks Delivery type: EAB Comments: D&C # 5 Delivery date: 12/02/2005 Weeks Gestation: 40 Delivery type: Anesthesia type: epidural Delivery location: [facility] Infant Sex: Female weight: 7#2 Comments: IOL no complications # 6 Delivery date: 11/18/2007 Weeks Gestation: 35 labor: yes Delivery type: Anesthesia type: epidural Delivery location: [facility] Infant Sex: Male weight: 6#5 Comments: PTL-BMZ series # 7 Delivery date: 06/22/2011 Weeks Gestation: 40 Delivery type: Anesthesia type: epidural Delivery location: [facility] Infant Sex: Female weight: 8#12 Comments: Spontaneous labor, no complications Risk Factors: Smoked Tobacco Use: Former smoker Smokeless Tobacco Use: Never Passive smoke exposure: no Drug use: no HIV high-risk behavior: no Alcohol use: no Exercise: no Seatbelt use: preg-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 Last chemo treatment in September. Last radiation in January. PCP is Dr. Siddiqi. MERY sent. Followed by Dr. Pfeiffer and Dr. Guillaume ([facility] chemo oncologist) and Dr. Beaulieu (rad oncologist) chronic left side abdominal/back pain "for many years"- followed by PCP and seen by [facility], no dx made r/t cause of pain. Past Surgical History: mast jul 2018 right side T&A age17 leep 2004. abnormal cells, burned. Pap normal since colonoscopy 2005 (Lside pains) urethral stents 2015 D&C x4 Past Medical History Surgery (Non-instrument/control technician): mast jul 2018 right side T&A age17 leep 2004. abnormal cells, burned. Pap normal since colonoscopy 2006 (Lside pains) urethral stents 2014 D&C x4 Abnormal PAP: positive, 2002 with leep. all normal since then WANDA Exposure: negative Infertility: negative Uterine Anomaly: negative Uterine Surgery (not C/S): negative Other Gynecologic Problems: negative Family Hx: mother-htn mgm-dm maternal aunt-breast cancer Social Hx: single- lives with children. 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 of genital herpes: no Partner hx. of genital herpes: no Rash, Viral, or Febrile illness since last LMP? no Varicella/Chicken Pox Status: Previous Disease TB Risk: no Infection History Comments: 3 weeks ago- treated Genetic History ADVANCED MATERNAL AGE Congenital Heart Defect: Mom: no Dad: no Leo Disease: Mom: no Dad: no Thalassemia Mom: no Dad: no Neural Tube Defect Mom: no Dad: no Down's Syndrome Mom: no Dad: no Martin-Sachs Mom: no Dad: no Sickle Cell Disease/Trait Mom: no Dad: no Hemophilia Mom: no Dad: no Muscular Dystrophy Mom: no Dad: no Cystic Fibrosis Mom: yes Dad: no [place] Chorea Mom: no Dad: no Mental Retardation Mom: no Dad: no Fragile X Mom: no Dad: no Other Genetic/Chromosomal Disorder Mom: no Dad: no Child w/other defect Mom: no Dad: no Enviromental Exposures Enviromental Exposures Reviewed Xray Exposure: no Medication, drug, or alcohol use since LMP: yes Chemical/Other Exposure: yes Exposure to Cat Liter: no Hx of Parvovirus (Fifth Disease): no Occupational Exposure to Children: none Comments: MRI with contrast February 2019 Chemo September 2018 medical marijuana last use 1 week ago Active Medications (reviewed today): OMAPRAZOLE () Current Allergies (reviewed today): * MACROBID (Critical) Past History Past Medical History: cancer Past Surgical History: 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: chlamydia (PATRICIA negative), gonorrhea (PATRICIA Negaive) - Obstetrical History Expected Date of Delivery: 11/28/19 Actual Gestation: 39 Week(s) 1 Day(s) : 8 Para: 4 Hx # Term Pregnancies: 3 Number of Pregnancies: 1 Spontaneous Abortions: 0 Induced : 3 Number of Living Children: 4 Medications and Allergies Allergies Allergy/AdvReac Type Severity Reaction Status Date / Time hydrocodone Allergy Nausea and Verified 08/24/18 15:34 Headache nitrofurantoin Allergy CHEST PAIN Verified 08/24/18 15:34 [From Macrobid] codeine AdvReac Intermediate Nausea Verified 08/24/18 15:34 ALMOND Allergy Itching Uncoded 08/24/18 15:34 IV Contrast Dye Allergy Hives Uncoded 08/24/18 15:34 Home Medications Medication Instructions Recorded Confirmed Last Taken Type Folic Acid [Folvite] 1 mg PO QDAY 10/28/19 10/28/19 10/27/19 09:00 History Vit-Fe Fumar-FA [ 1 tab PO QDAY 10/28/19 10/28/19 10/27/19 09 :00 History Vitamin] Active Meds: Active Medications Acetaminophen (Tylenol) 650 mg PO Q6H PRN PRN Reason: Pain, Mild (1-3) Ephedrine Sulfate (Ephedrine Sulfate) 10 mg IV Q2M PRN PRN Reason: Hypotension Oxytocin/Sodium Chloride (Pitocin/Ns 20 Unit/1000ml Drip) 20 units in 1,000 mls @ 125 mls/hr IV DIRECT WANDA Lactated Ringer's (Lactated Ringers) 1,000 mls @ 125 mls/hr IV DIRECT WANDA Last Admin: 11/21/19 23:39 Dose: 125 mls/hr Documented by: Ampicillin Sodium (Ampicillin/Ns 1 Gm/50 Ml) 1 gm in 50 mls @ 100 mls/hr IV Q4HR WANDA; Protocol Last Admin: 11/22/19 04:52 Dose: 100 mls/hr Documented by: Mineral Oil (Mineral Oil) 30 ml PO QHS PRN PRN Reason: Constipation Terbutaline Sulfate (Brethine) 0.25 mg SUB-Q ONCE PRN PRN Reason: Hyperstimulation/Hypertonicity Terbutaline Sulfate (Brethine) 0.25 mg IVP ONCE PRN PRN Reason: Hyperstimulation/Hypertonicity - Vital Signs Vital signs: Vital Signs Pulse Ox 98 11/21/19 20:42 Temp Pulse Resp BP Pulse Ox 98.8 F 64 18 137/67 100 11/22/19 01:15 11/22/19 06:04 11/22/19 04:54 11/22/19 05:53 11/22/19 06:04 - Physical Exam Breasts: Positive: deferred Cardiovascular: Regular rate, Normal S1, Normal S2 Abdomen: Positive: normal appearance, soft, normal bowel sounds. Negative: distention, tenderness Genitourinary (Female): Positive: normal external genitalia Vulva: both: normal Vagina: Positive: normal moisture. Negative: discharge Cervix: Negative: lesion, discharge Uterus: Positive: normal size, normal contour Adnexa: both: normal Anus/Rectum: Positive: normal perianal skin, heme negative. Negative: rectal mass, hemorrhoids Extremities: Positive: normal Deep Tendon Reflex Grade: Normal +2 - Obstetrical FHR: category 1 Uterine Contraction Monitor Mode: External Cervical Dilatation: 2 (cervidil in place) Cervical Effacement Percentage: 60 (vertex confirmed by US on arrival to unit) station: -4 Uterine Contraction Pattern: Irregular Uterine Tone Measurement Phase: Resting Uterine Contraction Intensity: Mild Results Result Diagrams: 11/22/19 00:26 Abnormal lab results 11/21/19 11/22/19 Range/Units 21:00 00:26 RBC 3.36 L 3.50 L (3.65-5.03) M/mm3 Hct 30.2 L (30.3-42.9) % MCHC 36 H (30-34) % RDW 16.1 H 16.0 H (13.2-15.2) % All other labs normal. GBS Positive HBsAg Screen Negative Negative *1 RPR Non Reactive Non Reactive *2 Rubella Antibodies, IgG 1.96 index Immune >0.99 *3 Non-immune <0.90 Equivocal 0.90 - 0.99 Immune >0.99 ABO Grouping B *4 Rh Factor Positive *5 Please note: Prior records for this patient's ABO / Rh type are not available for additional verification. Antibody Screen Negative Negative *6 WBC 9.4 x10E3/uL 3.4-10.8 *7 RBC 4.08 x10E6/uL 3.77-5.28 *8 Hemoglobin 11.9 g/dL 11.1-15.9 *9 Hematocrit 36.0 % 34.0-46.6 *10 MCV 88 fL 79-97 *11 MCH 29.2 pg 26.6-33.0 *12 MCHC 33.1 g/dL 31.5-35.7 *13 RDW [H] 16.4 % 12.3-15.4 *14 Platelets 289 x10E3/uL 150-450 *15 Neutrophils 83 % Not Estab. *16 Lymphs 12 % Not Estab. *17 Monocytes 4 % Not Estab. *18 Eos 1 % Not Estab. *19 Basos 0 % Not Estab. *20 ! Immature Cells <No Reported Value> *21 Neutrophils (Absolute) [H] 7.8 x10E3/uL 1.4-7.0 *22 Lymphs (Absolute) 1.1 x10E3/uL 0.7-3.1 *23 Monocytes(Absolute) 0.4 x10E3/uL 0.1-0.9 *24 Eos (Absolute) 0.1 x10E3/uL 0.0-0.4 *25 Baso (Absolute) 0.0 x10E3/uL 0.0-0.2 *26 ! Immature Granulocytes 0 % Not Estab. *27 ! Immature Grans (Abs) 0.0 x10E3/uL 0.0-0.1 *28 ! NRBC <No Reported Value> *29 Hematology Comments: <No Reported Value> *30 Tests: (2) Panel 647212 ([id number]) HIV Screen 4th Generation wRfx Non Reactive Non Reactive *31 Tests: (3) HCV Ab w/Rflx to Verification ([id number]) ! HCV Ab <0.1 s/co ratio 0.0-0.9 *32 Tests: (4) Comment: ([id number]) ! Comment: SPRCS *33 Non reactive HCV antibody screen is consistent with no HCV infection, unless recent infection is suspected or other evidence exists to indicate HCV infection. Assessment and Plan 39yo @ 39w for IOL as per [facility]F recommendation. GBS+ All orders in EMR - Patient Problems (1) Group B Streptococcus carrier state affecting Onset Date: ~11/22/19 Current Visit: Yes Status: Acute Plan to address problem: Ampicillin per protocol Pt has received 2 doses @ the time of this note
[2019-11-22] MEDS: LACTATED RINGERS 1,000 ML IV SCH ×4 (09:06→16:46)
--- NOTE | 2019-11-22 12:59 | Progress Note ---
Assessment and Plan ROM clear Internals placed Bolusing for epidural. Re-eval after epidural is placed. - Patient Problems (1) Group B Streptococcus carrier state affecting Onset Date: ~11/22/19 Current Visit: Yes Status: Acute Subjective - Subjective Date of service: 11/22/19 (pt desires epidural) Interval history: EDC Confirmation: 11/28/2019 Gestational Age: 6 2/7 weeks Past History : 8 Term Births: 3 Premature Births: 1 Living Children: 4 Para: 4 Mult. Births: 0 Prev : 0 Prev. attempt? 0 Aborta: 3 Elect. Ab: 3 Spont. Ab: 0 Ectopics: 0 # 1 Delivery date: 1998 Weeks Gestation: 20 weeks Delivery type: EAB Comments: "2 day process" laminaria # 2 Delivery date: 2001 Weeks Gestation: 6 weeks Delivery type: EAB Comments: D&C with repeat 1 week later # 3 Delivery date: 10/13/2002 Weeks Gestation: 40 Delivery type: Anesthesia type: epidural Delivery location: [facility] Sex: Female weight: 7#8 Comments: IOL no complications # 4 Delivery date: 2004 Weeks Gestation: 4- weeks Delivery type: EAB Comments: D&C # 5 Delivery date: 12/02/2005 Weeks Gestation: 40 Delivery type: Anesthesia type: epidural Delivery location: [facility] Infant Sex: Female weight: 7#2 Comments: IOL no complications # 6 Delivery date: 11/18/2007 Weeks Gestation: 35 labor: yes Delivery type: Anesthesia type: epidural Delivery location: [facility] Sex: Male weight: 6#5 Comments: PTL-BMZ series # 7 Delivery date: 06/22/2011 Weeks Gestation: 40 Delivery type: Anesthesia type: epidural Delivery location: [facility] Infant Sex: Female weight: 8#12 Comments: Spontaneous labor, no complications Risk Factors: Smoked Tobacco Use: Former smoker Smokeless Tobacco Use: Never Passive smoke exposure: no Drug use: no HIV high-risk behavior: no Alcohol use: no Exercise: no 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 Last chemo treatment in September. Last radiation in January. PCP is Dr. Siddiqi. MERY sent. Followed by Dr. Pfeiffer and Dr. Guillaume ([facility] chemo oncologist) and Dr. Beaulieu (rad oncologist) chronic left side abdominal/back pain "for many years"- followed by PCP and seen by [facility], no dx made r/t cause of pain. Past Surgical History: mast jul 2018 right side T&A age17 leep 2004. abnormal cells, burned. 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 abnormal cells, burned. Pap normal since colonoscopy 2006 (Lside pains) urethral stents 2014 D&C x4 Abnormal PAP: positive, 2003 with leep. all normal since then WANDA Exposure: negative Infertility: negative Uterine Anomaly: negative Uterine Surgery (not C/S): negative Other Gynecologic Problems: negative Family Hx: mother-htn mgm-dm maternal aunt-breast cancer Social Hx: single- lives with children. 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 of genital herpes: no Partner hx. of genital herpes: no Rash, Viral, or Febrile illness since last LMP? no Varicella/Chicken Pox Status: Previous Disease TB Risk: no Infection History Comments: 3 weeks ago- treated Genetic History ADVANCED MATERNAL AGE Congenital Heart Defect: Mom: no Dad: no Leo Disease: Mom: no Dad: no Thalassemia Mom: no Dad: no Neural Tube Defect Mom: no Dad: no Down's Syndrome Mom: no Dad: no Martin-Sachs Mom: no Dad: no Sickle Cell Disease/Trait Mom: no Dad: no Hemophilia Mom: no Dad: no Muscular Dystrophy Mom: no Dad: no Cystic Fibrosis Mom: yes Dad: no Aleksandra Chorea Mom: no Dad: no Mental Retardation Mom: no Dad: no Fragile X Mom: no Dad: no Other Genetic/Chromosomal Disorder Mom: no Dad: no Child w/other defect Mom: no Dad: no Enviromental Exposures Enviromental Exposures Reviewed Xray Exposure: no Medication, drug, or alcohol use since LMP: yes Chemical/Other Exposure: yes Exposure to Cat Liter: no Hx of Parvovirus (Fifth Disease): no Occupational Exposure to Children: none Comments: MRI with contrast February 2019 Chemo September 2018 medical marijuana last use 1 week ago Active Medications (reviewed today): OMAPRAZOLE () Current Allergies (reviewed today): * MACROBID (Critical) Patient reports: movement normal Objective - Vital Signs Vital Signs: Vital Signs - 12hr 11/22/19 11/22/19 11/22/19 00:59 01:01 01:06 Temperature Pulse Rate 76 78 75 Respiratory Rate Blood Pressure Blood Pressure [Left] O2 Sat by Pulse 94 94 95 Oximetry 11/22/19 11/22/19 11/22/19 01:08 01:12 01:13 Temperature Pulse Rate 92 H 79 73 Respiratory Rate Blood Pressure 122/74 Blood Pressure [Left] O2 Sat by Pulse 94 99 Oximetry 11/22/19 11/22/19 11/22/19 01:15 01:17 01:22 Temperature 98.8 F Pulse Rate 77 74 77 Respiratory 18 Rate Blood Pressure Blood Pressure 113/67 [Left] O2 Sat by Pulse 98 98 97 Oximetry 11/22/19 11/22/19 11/22/19 01:23 01:27 01:32 Temperature Pulse Rate 75 71 80 Respiratory Rate Blood Pressure 113/67 Blood Pressure [Left] O2 Sat by Pulse 97 97 Oximetry 11/22/19 11/22/19 11/22/19 01:37 01:42 01:47 Temperature Pulse Rate 75 76 77 Respiratory Rate Blood Pressure Blood Pressure [Left] O2 Sat by Pulse 97 97 97 Oximetry 11/22/19 11/22/19 11/22/19 01:52 01:53 01:57 Temperature Pulse Rate 80 75 74 Respiratory Rate Blood Pressure 114/58 Blood Pressure [Left] O2 Sat by Pulse 97 96 Oximetry 11/22/19 11/22/19 11/22/19 02:02 02:07 02:12 Temperature Pulse Rate 68 74 70 Respiratory Rate Blood Pressure Blood Pressure [Left] O2 Sat by Pulse 98 97 96 Oximetry 11/22/19 11/22/19 11/22/19 02:17 02:22 02:23 Temperature Pulse Rate 67 70 70 Respiratory Rate Blood Pressure 103/62 Blood Pressure [Left] O2 Sat by Pulse 97 98 Oximetry 11/22/19 11/22/19 11/22/19 02:27 02:32 02:37 Temperature Pulse Rate 65 66 67 Respiratory Rate Blood Pressure Blood Pressure [Left] O2 Sat by Pulse 97 99 99 Oximetry 11/22/19 11/22/19 11/22/19 02:42 02:47 02:52 Temperature Pulse Rate 66 81 73 Respiratory Rate Blood Pressure Blood Pressure [Left] O2 Sat by Pulse 100 98 99 Oximetry 11/22/19 11/22/19 11/22/19 02:54 02:57 03:00 Temperature Pulse Rate 62 68 67 Respiratory 18 Rate Blood Pressure 121/62 Blood Pressure 121/62 [Left] O2 Sat by Pulse 97 99 Oximetry 11/22/19 11/22/19 11/22/19 03:02 03:07 03:12 Temperature Pulse Rate 64 69 69 Respiratory Rate Blood Pressure Blood Pressure [Left] O2 Sat by Pulse 99 99 100 Oximetry 11/22/19 11/22/19 11/22/19 03:17 03:22 03:23 Temperature Pulse Rate 70 69 64 Respiratory Rate Blood Pressure 108/58 Blood Pressure [Left] O2 Sat by Pulse 99 100 Oximetry 11/22/19 11/22/19 11/22/19 03:27 03:32 03:37 Temperature Pulse Rate 67 64 65 Respiratory Rate Blood Pressure Blood Pressure [Left] O2 Sat by Pulse 99 100 100 Oximetry 11/22/19 11/22/19 11/22/19 03:42 03:47 03:52 Temperature Pulse Rate 74 66 65 Respiratory Rate Blood Pressure Blood Pressure [Left] O2 Sat by Pulse 98 99 98 Oximetry 11/22/19 11/22/19 11/22/19 03:54 03:57 04:02 Temperature Pulse Rate 62 70 68 Respiratory Rate Blood Pressure 112/60 Blood Pressure [Left] O2 Sat by Pulse 99 98 Oximetry 11/22/19 11/22/19 11/22/19 04:07 04:12 04:17 Temperature Pulse Rate 70 72 73 Respiratory Rate Blood Pressure Blood Pressure [Left] O2 Sat by Pulse 99 99 99 Oximetry 11/22/19 11/22/19 11/22/19 04:22 04:24 04:27 Temperature Pulse Rate 75 74 71 Respiratory Rate Blood Pressure 122/74 Blood Pressure [Left] O2 Sat by Pulse 100 98 Oximetry 11/22/19 11/22/19 11/22/19 04:32 04:37 04:42 Temperature Pulse Rate 65 72 69 Respiratory Rate Blood Pressure Blood Pressure [Left] O2 Sat by Pulse 100 100 99 Oximetry 05/11/0711/22/19 11/22/19 04:49 04:50 04:53 Temperature Pulse Rate 64 64 65 Respiratory Rate Blood Pressure 105/67 105/63 Blood Pressure [Left] O2 Sat by Pulse 99 Oximetry 11/22/19 11/22/19 11/22/19 04:54 04:59 05:04 Temperature Pulse Rate 67 62 65 Respiratory 18 Rate Blood Pressure Blood Pressure 105/63 [Left] O2 Sat by Pulse 99 100 100 Oximetry 11/22/19 11/22/19 11/22/19 05:09 05:14 05:19 Temperature Pulse Rate 70 72 62 Respiratory Rate Blood Pressure Blood Pressure [Left] O2 Sat by Pulse 100 99 100 Oximetry 11/22/19 11/22/19 11/22/19 05:23 05:24 05:29 Temperature Pulse Rate 71 73 72 Respiratory Rate Blood Pressure 95/54 Blood Pressure [Left] O2 Sat by Pulse 93 99 99 Oximetry 11/22/19 11/22/19 11/22/19 05:34 05:39 05:44 Temperature Pulse Rate 61 67 66 Respiratory Rate Blood Pressure Blood Pressure [Left] O2 Sat by Pulse 99 100 100 Oximetry 11/22/19 11/22/19 11/22/19 05:49 05:53 05:54 Temperature Pulse Rate 69 61 62 Respiratory Rate Blood Pressure 137/67 Blood Pressure [Left] O2 Sat by Pulse 100 100 Oximetry 11/22/19 11/22/19 11/22/19 05:59 06:00 06:04 Temperature 98.4 F Pulse Rate 86 67 64 Respiratory 18 Rate Blood Pressure Blood Pressure 128/68 [Left] O2 Sat by Pulse 100 100 100 Oximetry 11/22/19 11/22/19 11/22/19 06:09 06:14 06:19 Temperature Pulse Rate 67 66 68 Respiratory Rate Blood Pressure 128/68 Blood Pressure [Left] O2 Sat by Pulse 100 100 100 Oximetry 11/22/19 11/22/19 11/22/19 06:23 06:24 06:29 Temperature Pulse Rate 67 65 65 Respiratory Rate Blood Pressure 121/65 Blood Pressure [Left] O2 Sat by Pulse 100 100 Oximetry 11/22/19 11/22/19 11/22/19 06:34 06:36 06:39 Temperature Pulse Rate 66 77 76 Respiratory Rate Blood Pressure Blood Pressure [Left] O2 Sat by Pulse 100 88 95 Oximetry 11/22/19 11/22/19 11/22/19 06:41 06:44 06:49 Temperature Pulse Rate 65 69 74 Respiratory Rate Blood Pressure Blood Pressure [Left] O2 Sat by Pulse 92 100 100 Oximetry 11/22/19 11/22/19 11/22/19 06:51 06:54 06:57 Temperature Pulse Rate 88 73 80 Respiratory Rate Blood Pressure Blood Pressure [Left] O2 Sat by Pulse 94 100 94 Oximetry 11/22/19 11/22/19 11/22/19 06:59 07:02 07:04 Temperature Pulse Rate 72 79 78 Respiratory Rate Blood Pressure Blood Pressure [Left] O2 Sat by Pulse 96 94 95 Oximetry 11/22/19 11/22/19 11/22/19 07:09 07:10 07:14 Temperature Pulse Rate 76 89 83 Respiratory Rate Blood Pressure Blood Pressure [Left] O2 Sat by Pulse 100 92 99 Oximetry 11/22/19 11/22/19 11/22/19 07:19 07:23 07:24 Temperature Pulse Rate 80 69 75 Respiratory Rate Blood Pressure 126/75 Blood Pressure [Left] O2 Sat by Pulse 99 100 Oximetry 11/22/19 11/22/19 11/22/19 07:29 07:34 07:39 Temperature Pulse Rate 87 79 77 Respiratory Rate Blood Pressure Blood Pressure [Left] O2 Sat by Pulse 100 98 98 Oximetry 11/22/19 11/22/19 11/22/19 07:44 07:49 07:53 Temperature Pulse Rate 77 65 64 Respiratory Rate Blood Pressure 110/60 Blood Pressure [Left] O2 Sat by Pulse 97 98 Oximetry 11/22/19 11/22/19 11/22/19 07:54 07:59 08:15 Temperature 98.1 F Pulse Rate 69 86 71 Respiratory 18 Rate Blood Pressure 114/74 Blood Pressure [Left] O2 Sat by Pulse 98 98 98 Oximetry 11/22/19 11/22/19 11/22/19 08:20 08:25 08:30 Temperature Pulse Rate 75 71 79 Respiratory Rate Blood Pressure Blood Pressure [Left] O2 Sat by Pulse 98 99 99 Oximetry 11/22/19 11/22/19 11/22/19 08:35 08:40 08:45 Temperature Pulse Rate 75 77 89 Respiratory Rate Blood Pressure Blood Pressure [Left] O2 Sat by Pulse 98 99 99 Oximetry 11/22/19 11/22/1920 08:50 08:55 09:00 Temperature Pulse Rate 67 78 78 Respiratory Rate Blood Pressure Blood Pressure [Left] O2 Sat by Pulse 99 98 100 Oximetry 11/22/19 11/22/19 11/22/19 09:05 09:10 09:15 Temperature Pulse Rate 72 76 75 Respiratory Rate Blood Pressure Blood Pressure [Left] O2 Sat by Pulse 98 98 100 Oximetry 11/22/19 11/22/19 11/22/19 09:20 09:25 09:30 Temperature Pulse Rate 64 74 73 Respiratory Rate Blood Pressure Blood Pressure [Left] O2 Sat by Pulse 99 98 99 Oximetry 11/22/19 11/22/19 11/22/19 09:35 09:39 09:40 Temperature Pulse Rate 66 68 69 Respiratory Rate Blood Pressure 102/55 Blood Pressure [Left] O2 Sat by Pulse 100 100 Oximetry 11/22/19 11/22/19 11/22/19 09:45 09:50 09:55 Temperature Pulse Rate 64 61 63 Respiratory Rate Blood Pressure Blood Pressure [Left] O2 Sat by Pulse 100 100 100 Oximetry 11/22/19 11/22/19 11/22/19 10:00 10:05 10:10 Temperature Pulse Rate 63 63 63 Respiratory Rate Blood Pressure Blood Pressure [Left] O2 Sat by Pulse 100 100 100 Oximetry 11/22/19 11/22/19 11/22/19 10:15 10:20 10:25 Temperature Pulse Rate 63 63 78 Respiratory Rate Blood Pressure Blood Pressure [Left] O2 Sat by Pulse 100 100 100 Oximetry 11/22/19 11/22/19 11/22/19 10:30 10:35 10:36 Temperature Pulse Rate 72 65 66 Respiratory Rate Blood Pressure Blood Pressure [Left] O2 Sat by Pulse 100 100 82 L Oximetry 11/22/19 11/22/19 11/22/19 10:37 10:40 10:45 Temperature Pulse Rate 64 89 68 Respiratory Rate Blood Pressure 116/67 Blood Pressure [Left] O2 Sat by Pulse 100 100 Oximetry 11/22/19 11/22/19 11/22/19 10:50 10:55 10:56 Temperature Pulse Rate 63 78 83 Respiratory Rate Blood Pressure Blood Pressure [Left] O2 Sat by Pulse 100 99 45 L Oximetry 11/22/19 11/22/19 11/22/19 11:01 11:20 11:25 Temperature Pulse Rate 75 67 73 Respiratory Rate Blood Pressure Blood Pressure [Left] O2 Sat by Pulse 100 100 100 Oximetry 11/22/19 11/22/19 11/22/19 11:30 11:35 11:38 Temperature Pulse Rate 73 76 65 Respiratory Rate Blood Pressure 125/83 Blood Pressure [Left] O2 Sat by Pulse 100 99 Oximetry 11/22/19 11/22/19 11/22/19 11:40 11:45 11:50 Temperature Pulse Rate 78 73 77 Respiratory Rate Blood Pressure Blood Pressure [Left] O2 Sat by Pulse 98 100 98 Oximetry 11/22/19 11/22/19 11/22/19 11:55 12:00 12:05 Temperature Pulse Rate 73 77 70 Respiratory Rate Blood Pressure Blood Pressure [Left] O2 Sat by Pulse 100 100 99 Oximetry 11/22/19 11/22/19 11/22/19 12:10 12:15 12:20 Temperature Pulse Rate 66 67 71 Respiratory Rate Blood Pressure Blood Pressure [Left] O2 Sat by Pulse 100 100 100 Oximetry 11/22/19 11/22/19 11/22/19 12:25 12:30 12:35 Temperature Pulse Rate 64 68 72 Respiratory Rate Blood Pressure Blood Pressure [Left] O2 Sat by Pulse 100 100 100 Oximetry 11/22/19 11/22/19 12:39 12:40 Temperature Pulse Rate 65 74 Respiratory Rate Blood Pressure 133/74 Blood Pressure [Left] O2 Sat by Pulse 100 Oximetry - Exam Breasts: deferred Cardiovascular: Regular rate Lungs: Normal air movement Abdomen: Present: normal appearance, soft. Absent: distention, tenderness Uterus: Present: normal FHR: auscultation normal, category 1 Uterine Contraction Monitor Mode: Internal Cervical Dilatation: 4 (clear fluid) Cervical Effacement Percentage: 80 (Internals placed) station: -2 Uterine Contraction Pattern: Regular Uterine Tone Measurement Phase: Resting Uterine Contraction Intensity: Moderate Extremities: normal Deep Tendon Reflex Grade: Normal +2 - Labs Labs: Abnormal Labs 11/21/19 11/22/19 21:00 00:26 RBC 3.36 L 3.50 L Hct 30.2 L MCHC 36 H RDW 16.1 H 16.0 H Laboratory Results - last 24 hr 11/21/19 11/21/19 11/21/19 21:00 21:00 21:00 WBC 8.6 RBC 3.36 L Hgb 10.8 Hct 30.2 L MCV 90 MCH 32 MCHC 36 H RDW 16.1 H Plt Count 275 Syphilis IgG Antibody Non-reactive Blood Type B POSITIVE Antibody Screen Negative 11/22/19 11/22/19 00:26 00:26 WBC 8.4 RBC 3.50 L Hgb 10.8 Hct 31.7 MCV 91 MCH 31 MCHC 34 RDW 16.0 H Plt Count 253 Syphilis IgG Antibody Non-reactive Blood Type Antibody Screen
[2019-11-22] MEDS: AMPICILLIN/NS 1 GM/50 ML 1 GM/50 ML BAG IV SCH ×2 (13:23→18:01)
[2019-11-22] MEDS ORDERED: fentaNYL-BUPIV 2 MCG/ML-0.125% 200 MCG/100 ML BAG EPIDURAL ONE (14:02)
[2019-11-22] MEDS ORDERED: DEXMEDETOMIDINE 200 MCG/2 ML VIAL IV ONE (14:02)
[2019-11-22] MEDS ORDERED: ePHEDrine SULFATE 50 MG/1 ML INJ IV PRN (14:19)
[2019-11-22] MEDS ORDERED: NALOXONE 2 MG/2 ML INJ IV PRN (14:19)
--- NOTE | 2019-11-22 14:21 | Anesthesia Consultation ---
Anesthesia Consult and Med Hx Date of service: 11/22/19 - Airway Anesthetic Teeth Evaluation: Good ROM Head & Neck: Adequate Mental/Hyoid Distance: Adequate Mallampati Class: Class II Intubation Access Assessment: Probably Good - Pulmonary Exam CTA: Yes - Cardiac Exam Cardiac Exam: RRR - Pre-Operative Health Status ASA Pre-Surgery Classification: ASA3 Proposed Anesthetic Plan: Epidural - Pulmonary Hx Smoking: Yes (OCC USES BLACK & MILDS) Hx Asthma: No COPD: No Hx Pneumonia: No Hx Sleep Apnea: No (DODIE PRE SCREEN NEGATIVE.) - Cardiovascular System Hx Hypertension: No Hx Heart Attack/AMI: No - Central Nervous System Hx Seizures: No CVA: No Hx Psychiatric Problems: No - Gastrointestinal Hx Gastroesophageal Reflux Disease: Yes - Endocrine Hx Renal Disease: No Hx End Stage Renal Disease: No Hx Cirrhosis: No Hx Hypothyroidism: No Hx Hyperthyroidism: No - Hematic Hx Anemia: No Hx Sickle Cell Disease: No - Other Systems Hx Alcohol Use: No Hx Obesity: Yes (BMI 35)
[2019-11-22] MEDS: ePHEDrine SULFATE 50 MG/1 ML INJ IV PRN ×3 (14:26→14:54)
[2019-11-22] MEDS ORDERED: OXYTOCIN DRIP 30 UNITS/500 ML BAG IV SCH ×2 (14:40→15:00)
[2019-11-22] MEDS ORDERED: fentaNYL-BUPIV 2 MCG/ML-0.125% 200 MCG/100 ML BAG EPIDURAL SCH (15:00)
--- NOTE | 2019-11-22 16:43 | Event Note ---
Date: 11/22/19 ("I'm very numb.") SVE 7,80,-2 [facility] @ [facility] [place]
[2019-11-22] MEDS ORDERED: WITCH HAZEL/ GLYCERIN PAD TP PRN (18:41)
[2019-11-22] MEDS ORDERED: PROMETHAZINE 25 MG RECT SUPP PR PRN (18:41)
[2019-11-22] MEDS ORDERED: ACETAMINOPHEN 325 MG TAB PO PRN (18:41)
[2019-11-22] MEDS ORDERED: ONDANSETRON 4 MG/2 ML INJ IV PRN (18:41)
[2019-11-22] MEDS ORDERED: LANOLIN/ZINC/DIMETHICONE (LANSINOH) 7 GM TP PRN (18:41)
[2019-11-22] MEDS ORDERED: diphenhydrAMINE 25 MG CAP PO PRN (18:41)
[2019-11-22] MEDS ORDERED: MAGNESIUM HYDROXIDE (MOM) ORAL LIQD UDC PO PRN (18:41)
[2019-11-22] MEDS ORDERED: PROMETHAZINE 25 MG TAB PO PRN (18:41)
--- NOTE | 2019-11-22 18:50 | Procedure Note ---
OB Delivery Note - Delivery Date of Delivery: 11/22/19 Route Delivery Driver: ELISEO HAILE Estimated blood loss: 300cc - Vaginal Delivery presentation: vertex Delivery position: OA Intrapartum events: other(please specify) (AMA Breast CA survivor) Delivery induction: cervidil Delivery augmentation: pitocin Delivery monitor: internal FHT, internal uterine Route of delivery: Delivery placenta: spontaneous Delivery cord: 3 umbilical vessels Episiotomy: none Delivery laceration: none Anesthesia: epidural Delivery comments: Noted early decels SVE C,C,+2 live born male over intact perineum. Baby skin to skin with mom. Cord blood obtained. Placenta and membrane delivered complete and intact, 3 vessel cord. Pit IVFs 8/9, EBL 300, Wgt 7-12. Mom and baby remain LDR stable Counts correct X 2. - Infant A at 1 minute: 8 at 5 minutes: 9 Gender: Male (wgt 7-12)
--- NOTE | 2019-11-22 21:36 | Event Note ---
Date: 11/22/19 (Alerted by RN that pt fell @ bedside; slipped in urine) Went into room Pt back in bed No c/o voiced. Moving legs with minimal control. No obvious bruising or contusions noted. Pt states RN actually went down to the floor with her "I did not drop or hit hard."
[2019-11-22] MEDS: IBUPROFEN 600 MG TAB PO SCH (22:44)
[2019-11-23] MEDS: IBUPROFEN 600 MG TAB PO SCH ×3 (04:50→18:19)
[2019-11-23] MEDS ORDERED: DIPHtheria,PERTUSSIS(ACELL),TETANUS VACCINE/PF 0.5 ML VIAL IM ONE (06:00)
[2019-11-23] MEDS ORDERED: MEASLES, MUMPS & RUBELLA 12,500 UNIT/0.5 ML VACCINE SUB-Q ONE (06:00)
[2019-11-23 07:03] LABS: Hematocrit 28.8 % (30.3-42.9); Hemoglobin 9.9 gm/dl (10.1-14.3)
--- NOTE | 2019-11-23 08:04 | Discharge Summary ---
Providers - Providers Date of Admission: 11/21/19 20:24 Date of discharge: 11/23/19 (desires d/c home) Attending physician: CATHERINE LOPEZ Primary care physician: CATHERINE LOPEZ Hospitalization Reason for admission: IOL Condition: Good Pertinent studies: post delivery H&H 9.9/28.8, asymptomatic anemia d/t acute blood loss Procedures: Hospital course: uncomplicated and course Disposition: DC-01 TO HOME OR SELFCARE - Discharge Diagnoses (1) Spontaneous vaginal delivery Status: Acute Core Measure Documentation - Palliative Care Palliative Care/ Comfort Measures: Not Applicable - Core Measures Any of the following diagnoses?: none Exam - Constitutional Vitals: Temp Pulse Resp BP Pulse Ox 97.5 F L 74 20 97/54 96 11/23/19 04:53 11/23/19 04:53 11/23/19 04:53 11/23/19 04:53 11/23/19 04:53 General appearance: Present: no acute distress, well-nourished - EENT Eyes: Present: PERRL ENT: hearing intact, clear oral mucosa - Neck Neck: Present: supple, normal ROM - Respiratory Respiratory effort: normal Respiratory: bilateral: CTA - Cardiovascular Rhythm: regular Heart Sounds: Absent: rub, click - Extremities Extremities: No edema - Abdominal General gastrointestinal: Present: soft, non-tender, non-distended, normal bowel sounds Female genitourinary: Present: normal - Integumentary Integumentary: Present: clear, warm, dry - Musculoskeletal Musculoskeletal: gait normal, strength equal bilaterally - Psychiatric Psychiatric: appropriate mood/affect, intact judgment & insight - Neurologic Neurologic: CNII-XII intact, moves all extremities - Additional findings Additional findings: breast and bottle feeding, lochia scant, fundus firm Plan Activity: no restrictions Diet: regular Follow up with: CATHERINE LOPEZ MD [Primary Care Provider] - 7 Days (Congratulation! Please call [phone] to schedule your son's circumcision in 1 week and your visit in 6 weeks. Bring EMLA cream to your son's appointment. Call for any questions or concerns.)
--- NOTE | 2019-11-23 17:48 | Post Anesthesia Evaluation ---
- Post Anesthesia Evaluation Patient Participated: Yes Airway Patent: Yes Stable Respiratory Function: Yes Nausea/Vomiting: No Temp > 96.8F: Yes Pain Manageable: Yes Adequeate Hydration: Yes Anesthesia Complications: No Block Receding Appropriately: Yes
[2019-11-23 22:29] VITALS: BP 122/77
== END 2019-11-23 21:50 | disposition home or self-care (01) | DRG 775 ==
LOC: LD 20:24 → OB 11-22 21:29
PROVIDERS: ADMIT Obstetrics & Gynecology; ATTEND Obstetrics & Gynecology
PROC: 3E0P7VZ Introduction of Hormone into Female Reproductive, Via Natural or Artificial Opening (ICD-10-PCS; 2019-11-21)
PROC: 10E0XZZ Delivery of Products of Conception, External Approach (ICD-10-PCS; principal; 2019-11-22)
PROC: 10H07YZ Insertion of Other Device into Products of Conception, Via Natural or Artificial Opening (ICD-10-PCS; 2019-11-22)
PROC: 3E0R3BZ Introduction of Anesthetic Agent into Spinal Canal, Percutaneous Approach (ICD-10-PCS; 2019-11-22)
PROC: 00HU33Z Insertion of Infusion Device into Spinal Canal, Percutaneous Approach (ICD-10-PCS; 2019-11-22)
PROC: 3E0234Z Introduction of Serum, Toxoid and Vaccine into Muscle, Percutaneous Approach (ICD-10-PCS; 2019-11-23)
PROC: 3E0134Z Introduction of Serum, Toxoid and Vaccine into Subcutaneous Tissue, Percutaneous Approach (ICD-10-PCS; 2019-11-23)
DX: O99.824 Streptococcus B carrier state complicating childbirth (principal); E66.9 Obesity, unspecified; E78.00 Pure hypercholesterolemia, unspecified; K21.9 Gastro-esophageal reflux disease without esophagitis; O90.81 Anemia of the puerperium; O99.214 Obesity complicating childbirth; O99.62 Diseases of the digestive system complicating childbirth; O99.284 Endocrine, nutritional and metabolic diseases complicating childbirth; D62 Acute posthemorrhagic anemia; Z3A.39 39 weeks gestation of pregnancy; Z37.0 Single live birth; Z87.891 Personal history of nicotine dependence; Z82.49 Family history of ischemic heart disease and other diseases of the circulatory system; Z83.3 Family history of diabetes mellitus; Z80.3 Family history of malignant neoplasm of breast; Z85.3 Personal history of malignant neoplasm of breast; Z92.3 Personal history of irradiation; Z92.21 Personal history of antineoplastic chemotherapy; Z90.11 Acquired absence of right breast and nipple; Z91.041 Radiographic dye allergy status; Z88.5 Allergy status to narcotic agent; Z88.8 Allergy status to other drugs, medicaments and biological substances; Z91.018 Allergy to other foods; Z23 Encounter for immunization
CPT/HCPCS: 36415; 59200; 76815; 85014; 85018; 85027; 86592; 86850; 86900; 86901; 88307; G0378; J0290; J2590; J3490; J7120